=== PATIENT | female | born 1945 | race Caucasian/White ===

== ENCOUNTER 2016-04-06 17:32 | Emergency (ER) | payer OTHER, BC ==
[2016-04-06 17:44] VITALS: TEMP 98.1; BMI 25.7
--- NOTE | 2016-04-06 18:37 | PDOC ---
History of Present Illness - General History Source: Patient Exam Limitations: No Limitations - History of Present Illness Initial Comments: 04/06/16 18:44 The patient is a 70 year old female, with a significant past medical history of paroxysmal afib, HTN, GERD, hypercholesterolemia, CAD x2 stent, brain aneurism, partial colon resection s/p diverticulitis who presents to the emergency department with high blood pressure, with her BP upon ED being 196/115. Patient reports last night having a progressive intermittent diffuse headache after eating a large meal at [facility]. She reports being at the doctor earlier that day and had a normal BP reading. She reports taking two Aleve before going to bed with mild alleviation of her symptoms. She reports later this morning/ afternoon do to the continuing of her symptoms checking her BP 3 times in both arms with reading ranging from 195-209, wiht her last reading being 209/101. The patient denies any ankle swelling, visual change, or numbness and tingling in her extremities. Patient's daily medications include: Losartan 100 mg and daily,toprol xl 50mg which she took later than usual today and amlodipine 5mg "PRN" which she took at 5 pm today. She denies chest pain and shortness of breath. She denies fever, and chills She denies any other complaints at this time, and the remainder of the review of systems is negative. Allergies: Penicillins Social History: Former Smoker. Denies drug use. Social drinker Surgical History: Partial colon resection, cardiac stents. <Zurdo Hudson - Last Filed: 04/06/16 18:51> <Gianna Bonds - Last Filed: 04/08/16 19:44> - General Chief Complaint: Blood Pressure Problem Stated Complaint: htn Time Seen by Provider: 04/06/16 17:55 Past History <Zurdo Hudson - Last Filed: 04/06/16 18:51> - Past Medical History Anemia: No Asthma: No Cancer: No Cardiac Disorders: Yes (2 stents 2010, PAROXYSMAL A-FIB,NOW IN NSR) CVA: No COPD: No CHF: No Dementia: No Diabetes: No GI Disorders: Yes (HX OF SEVERE DIVERTICULITIS) Disorders: No HTN: Yes Hypercholesterolemia: Yes Liver Disease: No Seizures: No Thyroid Disease: No - Surgical History Abdominal Surgery: Yes (PARTIAL COLON RESECTION FROM DIVERTICULITIS 1994) Appendectomy: No Cardiac Surgery: Yes (STENTS; SEE ABOVE) Cholecystectomy: No Lung Surgery: No Neurologic Surgery: No Orthopedic Surgery: No - Psycho/Social/Smoking Cessation Hx Anxiety: No Suicidal Ideation: No Smoking Status: Yes Smoking History: Never smoked Have you smoked in the past 12 months: No Number of Cigarettes Smoked Daily: 0 If you are a former smoker, when did you quit?: 2007 Information on smoking cessation initiated: No Hx Alcohol Use: No Drug/Substance Use Hx: No Substance Use Type: None Hx Substance Use Treatment: No <Gianna Bonds - Last Filed: 04/08/16 19:44> - Past Medical History Allergies/Adverse Reactions: Allergies Allergy/AdvReac Type Severity Reaction Status Date / Time Penicillins Allergy Unknown Verified 05/10/15 07:31 Home Medications: Ambulatory Orders Atorvastatin Ca [Lipitor] 80 mg PO DAILY 02/22/14 Clopidogrel Bisulfate [Plavix -] 75 mg PO DAILY 02/22/14 Ezetimibe [Zetia] 10 mg PO DAILY 02/22/14 Hydrochlorothiazide [Hctz -] 25 mg PO DAILY 02/22/14 Metoprolol Succinate [Toprol XL -] 50 mg PO DAILY 02/22/14 Losartan Potassium 50 mg PO DAILY 05/05/15 Pantoprazole Sodium [Protonix] 40 mg PO DAILY 05/10/15 Potassium Chloride [K-Dur] 20 meq PO DAILY 05/10/15 Ubidecarenone/Vit E Acetate [Co Q-10 100 mg Softgel] 1 each PO DAILY 05/10/15 Amlodipine Besylate [Norvasc -] 5 mg PO PRN PRN 04/06/16 *Physical Exam - Vital Signs Last Vital Signs Temp Pulse Resp BP Pulse Ox 98.1 F 68 18 154/87 98 04/06/16 17:33 04/06/16 18:16 04/06/16 18:16 04/06/16 18:16 04/06/16 18:16 <Zurdo Hudson - Last Filed: 04/06/16 18:51> - Vital Signs Last Vital Signs Temp Pulse Resp BP Pulse Ox 98.1 F 68 18 154/87 98 04/06/16 17:33 04/06/16 18:16 04/06/16 18:16 04/06/16 18:16 04/06/16 18:16 - Physical Exam Comments: 04/06/16 18:35 Physical exam Vital Signs - 24 hr 04/06/16 04/06/16 17:33 18:16 Temperature 98.1 F Pulse Rate 67 Pulse Rate [ 68 Right Radial] Respiratory 18 18 Rate Blood Pressure 196/115 Blood Pressure 154/87 [Left Arm] O2 Sat by Pulse 98 98 Oximetry (%) GENERAL: The patient is awake, alert, and fully oriented, and in no apparent distress. HEAD: Normal with no signs of trauma. EYES: Pupils equal, round and reactive to light, extraocular movements intact, sclera anicteric, conjunctiva are normal. ENT: nares patent, oropharynx clear without exudates. Moist mucous membranes. NECK: Normal range of motion, supple LUNGS: Breath sounds equal, clear to auscultation bilaterally. No wheezes, and no crackles. HEART: Regular rate and rhythm, normal S1 and S2 without murmur, rub or gallop. ABDOMEN: Soft, nontender, normoactive bowel sounds. No guarding, no rebound. No masses appreciated. EXTREMITIES: Normal range of motion, no edema. No clubbing or cyanosis. No cords, erythema, or tenderness. NEURO: Mental status: The patient is oriented x3. Cranial nerves: Cranial nerves II through XII are intact Motor: The upper extremities are 5 over 5 in all muscle groups. The lower extremities are 5 over 5 in all muscle groups. Sensation: Sensation is intact to light touch throughout. Cerebellar: Uzdsie-bztgvt-ljsz is normal in both upper extremities. Heel-knee- min is normal in both lower extremities. Gait: Normal. Heel and toe walking are normal. Tandem gait is normal. NEUROLOGICAL: Cranial nerves II through XII grossly intact. Normal speech, normal gait. PSYCH: Normal mood, normal affect. SKIN: Warm, Dry, normal turgor, no rashes or lesions noted. <Gianna Bonds - Last Filed: 04/08/16 19:44> ED Treatment Course - LABORATORY CBC & Chemistry Diagram: 04/06/16 18:48 04/06/16 18:48 <Gianna Bonds - Last Filed: 04/08/16 19:44> Medical Decision Making - Medical Decision Making 04/06/16 18:57 70-year-old female with a past medical history as noted above, who is usually on losartan 100 mg a day, Toprol-XL 50 mg daily, and amlodipine 5 mg "when necessary", when she feels she needs it Patient started with a headache last night, but did not take her blood pressure, She did have a routine doctor's appointment today, and at that time she did not have a headache and her blood pressure was okay She took her losartan and Toprol-XL late today because of this doctor's appointment She started getting a headache again after returning from her doctor's appointment, and she took her blood pressure and it was high She took an amlodipine at 5 PM Her initial blood pressure on arrival was high, but then came down, probably due to the extra amlodipine that she took It is unclear why she does not take the amlodipine on a daily basis Vital Signs - 24 hr 04/06/16 04/06/16 17:33 18:16 Temperature 98.1 F Pulse Rate 67 Pulse Rate [ 68 Right Radial] Respiratory 18 18 Rate Blood Pressure 196/115 Blood Pressure 154/87 [Left Arm] O2 Sat by Pulse 98 98 Oximetry (%) Patient states that her headache is much better now that her blood pressures come down Will check EKG and lab work, as well as urine EKG Sinus bradycardia 57, left axis deviation -40 Borderline first degree AV block Incomplete right bundle branch block Normal QTC Nonspecific ST-T waves No old EKGs available for comparison at this time 04/06/16 19:16 SIGN OUT Case discussed in detail with oncoming Emergency Physician including history, physical exam and ancillary studies. Oncoming Emergency Physician has assumed care for the patient and will complete the evaluation and treatment. 04/06/16 19:18 <Gianna Bonds - Last Filed: 04/08/16 19:44> *DC/Admit/Observation/Transfer - Attestations Scribe Attestion: 04/06/16 18:44 Documentation prepared by Zurdo Hudson, acting as biomedical manager for Gianna Bonds MD. <Zurdo Hudson - Last Filed: 04/06/16 18:51> <Gianna Bonds - Last Filed: 04/08/16 19:44> Diagnosis at time of Disposition: Essential hypertension - Discharge Dispostion Disposition: HOME Condition at time of disposition: Improved - Patient Instructions Additional Instructions: Take your amlodipine in the evening and her other 2 blood pressure medicines in the morning. Call your rn ostomy tomorrow and let him know that I recommended that you take your amlodipine in the evening on a regular basis. Return to the emergency department immediately with ANY new, persistent or worsening symptoms. Continue any medications as previously prescribed by your physician. You should follow up with your primary doctor as soon as possible regarding today's emergency department visit. . Please make sure your doctor reviews the results of your emergency evaluation. Thank you for coming to the Emergency Department today for your care. It was a pleasure to see you today. Please note that your evaluation is INCOMPLETE until you follow-up with your doctor.
[2016-04-06 18:57] LABS: MCH 31.2 pg (25.7-33.7); MCHC 33.5 g/dl (32.0-36.0); MEAN PLT VOLUME 8.3 fl (7.5-11.1); PLATELET COUNT 198 K/MM3 (134-434); RDW 13.1 % (11.6-15.6); WHITE BLOOD COUNT 4.8 K/mm3 (4.0-10.0)
[2016-04-06 18:58] LABS: URINE APPEARANCE Clear; URINE BILIRUBIN Negative (NEGATIVE); URINE BLOOD Negative (NEGATIVE); URINE GLUCOSE (UA) Negative (NEGATIVE); URINE KETONE Negative (NEGATIVE); URINE NITRITE Negative (NEGATIVE); URINE PROTEIN Negative (NEGATIVE); URINE UROBILINOGEN 0.2 E.U/dl (0.2-1.0)
[2016-04-06 19:04] LABS: URINE COLOR YELLOW; URINE LEUK ESTERASE 1+ (NEGATIVE)
[2016-04-06 19:11] LABS: CPK(DFH) 126 IU/L (26-140)
[2016-04-06 19:13] LABS: URINE RBC 0-2 /hpf (0-3)
[2016-04-06 19:14] LABS: URINE BACTERIA FEW /hpf (NEGATIVE)
[2016-04-06 19:26] LABS: ALBUMIN 4.4 g/dl (3.5-5.0); ALK PHOS 78 U/L (32-92); ANION GAP 12 (8-16); BILIRUBIN,TOTAL 0.7 mg/dl (0.2-1.0); CALCIUM 9.2 mg/dl (8.4-10.2); CO2 26 mmol/L (22-28); CREATININE 0.9 mg/dl (0.6-1.3); GLUCOSE,RANDOM 111 mg/dl (74-106); SGOT/AST 54 U/L (10-42); SGPT/ALT 39 U/L (10-40); TOT PROT 6.7 g/dl (6.4-8.3)
[2016-04-06 19:29] LABS: TROPONIN I (DFP) < 0.03 ng/ml (0.03-0.50)
[2016-04-06 19:34] VITALS: BP 158/88; PULSE 61
--- NOTE | 2016-04-06 19:46 | PDOC ---
*Physical Exam - Vital Signs Last Vital Signs Temp Pulse Resp BP Pulse Ox 98.1 F 61 18 158/88 98 04/06/16 17:33 04/06/16 19:33 04/06/16 18:16 04/06/16 19:33 04/06/16 18:16 ED Treatment Course - LABORATORY CBC & Chemistry Diagram: 04/06/16 18:48 04/06/16 18:48 - ADDITIONAL ORDERS Additional order review: Laboratory Results 04/06/16 04/06/16 04/06/16 18:55 18:48 18:48 Sodium 137 Potassium 3.4 L Chloride 99 Carbon Dioxide 26 Anion Gap 12 BUN 23 H Creatinine 0.9 Creat Clearance w eGFR > 60 Random Glucose 111 H Calcium 9.2 Total Bilirubin 0.7 AST 54 H ALT 39 Alkaline Phosphatase 78 Creatine Kinase 126 Troponin I < 0.03 L Total Protein 6.7 Albumin 4.4 Urine Color Yellow Urine Appearance Clear Urine pH 7.0 Ur Specific [place] 1.010 Urine Protein Negative Urine Glucose (UA) Negative Urine Ketones Negative Urine Blood Negative Urine Nitrite Negative Urine Bilirubin Negative Urine Urobilinogen 0.2 e.u/dl Ur Leukocyte Esterase 1+ H Urine RBC 0-2 Urine WBC 2-5 Ur Epithelial Cells Few Urine Bacteria Few 04/06/16 18:48 RBC 3.87 MCV 93.0 MCHC 33.5 RDW 13.1 MPV 8.3 Progress Note - Progress Note Progress Note: Care of this patient was transferred to hi from Dr. Lisa at 1900 hrs. Patient is a 70-year-old female with multiple cardiac risk factors who comes in complaining of elevated blood pressure. Patient had taken her losartan and shortly before coming in and when she got here her blood pressure was elevated but then improved and is currently normal. Patient was complaining of a headache associated with the elevated blood pressure which has now since resolved. Patient said she is supposed to take her losartan when necessary.. Patient otherwise has a cardiogram with no acute ST-T wave changes however there isn't an old one to compare it with but it appears to be nonacute. Lab work is still pending and patient will be discharged if lab work is unremarkable and I will recommend that she take her losartan every evening instead of by mouth when necessary and follow-up with her primary care doctor. 20:20 Patient feels much better blood pressure is now improved and remains improved. Patient said she will call her legal archivist in the morning I recommended that she take the [place] pain on a regular basis in the evening should also check with her legal archivist to make sure that the legal archivist is on board with that as well. Patient said she is scheduled for a stress test next week to see if possibly there is something else contributing to her blood pressure spikes in the evening. Patient discharged home. *DC/Admit/Observation/Transfer Diagnosis at time of Disposition: Essential hypertension - Discharge Dispostion Disposition: HOME Admit: No - Patient Instructions Additional Instructions: Take your amlodipine in the evening and her other 2 blood pressure medicines in the morning. Call your legal archivist tomorrow and let him know that I recommended that you take your amlodipine in the evening on a regular basis. Return to the emergency department immediately with ANY new, persistent or worsening symptoms. Continue any medications as previously prescribed by your physician. You should follow up with your primary doctor as soon as possible regarding today's emergency department visit. . Please make sure your doctor reviews the results of your emergency evaluation. Thank you for coming to the Emergency Department today for your care. It was a pleasure to see you today. Please note that your evaluation is INCOMPLETE until you follow-up with your doctor.
--- NOTE | 2016-04-07 12:36 | EKG ---
Test Reason : Blood Pressure : / mmHG Vent. Rate : 057 BPM Atrial Rate : 057 BPM P-R Int : 192 ms QRS Dur : 106 ms QT Int : 448 ms P-R-T Axes : 037 -40 -02 degrees QTc Int : 436 ms SINUS BRADYCARDIA LEFT AXIS DEVIATION INCOMPLETE RIGHT BUNDLE BRANCH BLOCK SEPTAL INFARCT , AGE UNDETERMINED NONSPECIFIC ST ABNORMALITY Confirmed by BISI ESPINAL MD ([id number]) on 04/07/2016 12:35:52 PM Referred By: DR RODGERS Confirmed By:BISI ESPINAL MD
== END 2016-04-06 20:30 | disposition home or self-care (01) ==
LOC: FER 17:32
DX: I10 Essential (primary) hypertension (principal); I48.91 Unspecified atrial fibrillation; K21.9 Gastro-esophageal reflux disease without esophagitis; E78.00 Pure hypercholesterolemia, unspecified; I67.1 Cerebral aneurysm, nonruptured; Z95.5 Presence of coronary angioplasty implant and graft; Z87.891 Personal history of nicotine dependence
CPT/HCPCS: 36415; 71010-TC; 80053; 81003; 81015; 82550; 84484; 85027; 93005; 99283-25

== ENCOUNTER 2017-05-20 19:12 | Emergency (ER) | payer OTHER, BC ==
--- NOTE | 2017-05-20 19:23 | PDOC ---
History of Present Illness - General History Source: Patient Exam Limitations: No Limitations - History of Present Illness Initial Comments: 05/20/17 19:57 The patient is a 71 year old female, with a significant past medical history of Afib and hypertension, who presents to the emergency department with, one day of dizziness. As per patient, she has felt dizzy intermittently throughout the day. She describes her dizziness as the room spinning. She reports going to urgent care who referred her to the ED for further testing. She denies any recent loss of consciousness. She denies recent fevers or chills. She denies recent nausea, vomit, diarrhea or constipation. She denies recent dysuria, frequency, urgency or hematuria. She denies recent chest pain or shortness of breath. <Brennan Alonzo - Last Filed: 05/20/17 19:57> <Yadi Thacker - Last Filed: 05/20/17 22:25> - General Chief Complaint: Lightheaded Stated Complaint: LIGHTHEADED Time Seen by Provider: 05/20/17 19:23 Past History <Brennan Alonzo - Last Filed: 05/20/17 19:57> - Past Medical History Anemia: No Asthma: No Cancer: No Cardiac Disorders: Yes (2 stents 2010, PAROXYSMAL A-FIB,NOW IN NSR) CVA: No COPD: No CHF: No Dementia: No Diabetes: No GI Disorders: Yes (HX OF SEVERE DIVERTICULITIS) Disorders: No HTN: Yes Hypercholesterolemia: Yes Liver Disease: No Seizures: No Thyroid Disease: No - Surgical History Abdominal Surgery: Yes (PARTIAL COLON RESECTION FROM DIVERTICULITIS 1994) Appendectomy: No Cardiac Surgery: Yes (STENTS; SEE ABOVE) Cholecystectomy: No Lung Surgery: No Neurologic Surgery: No Orthopedic Surgery: No - Suicide/Smoking/Psychosocial Hx Smoking Status: Yes Smoking History: Never smoked Have you smoked in the past 12 months: No Number of Cigarettes Smoked Daily: 0 If you are a former smoker, when did you quit?: 2007 Hx Alcohol Use: No Drug/Substance Use Hx: No Substance Use Type: None Hx Substance Use Treatment: No <Yadi Thacker - Last Filed: 05/20/17 22:25> - Past Medical History Allergies/Adverse Reactions: Allergies Allergy/AdvReac Type Severity Reaction Status Date / Time Penicillins Allergy Unknown Verified 05/20/17 19:17 alirocumab AdvReac Severe Flu like Verified 05/20/17 19:17 [From Praluent Pen] illness Home Medications: Ambulatory Orders Ezetimibe [Zetia] 10 mg PO HS 02/22/14 Hydrochlorothiazide [Hctz -] 25 mg PO DAILY 02/22/14 Ubidecarenone/Vit E Acet [Co Q-10 100 mg Softgel] 1 each PO DAILY 05/10/15 Apixaban [Eliquis] 5 mg PO BID tablet 09/01/16 Aspirin [Aspirin Ec] 81 mg PO DAILY 09/01/16 Gabapentin 300 mg PO HS capsule 09/01/16 Losartan Potassium 100 mg PO DAILY tablet 09/01/16 Metoprolol Succinate 50 mg PO DAILY 09/01/16 Pantoprazole Sodium 20 mg PO HS 09/01/16 Meclizine HCl [Antivert -] 25 mg PO QID #30 tablet 05/20/17 Review of Systems - Review of Systems Able to Perform ROS?: Yes Comments:: 05/20/17 19:57 GENERAL/CONSTITUTIONAL: No fever or chills. No weakness. HEAD, EYES, EARS, NOSE AND THROAT: No change in vision. No ear pain or discharge. No sore throat. CARDIOVASCULAR: No chest pain or shortness of breath. RESPIRATORY: No cough, wheezing, or hemoptysis. GASTROINTESTINAL: No nausea, vomiting, diarrhea or constipation. GENITOURINARY: No dysuria, frequency, or change in urination. MUSCULOSKELETAL: No joint or muscle swelling or pain. No neck or back pain. SKIN: No rash NEUROLOGIC: +Vertigo. No headache, loss of consciousness, or change in strength/ sensation. ENDOCRINE: No increased thirst. No abnormal weight change. HEMATOLOGIC/LYMPHATIC: No anemia, easy bleeding, or history of blood clots. ALLERGIC/IMMUNOLOGIC: No hives or skin allergy. All Other Systems: Reviewed and Negative <Brennan Alonzo - Last Filed: 05/20/17 19:57> *Physical Exam - Vital Signs Last Vital Signs Temp Pulse Resp BP Pulse Ox 98.1 F 78 16 112/75 98 05/20/17 19:21 05/20/17 19:21 05/20/17 19:21 05/20/17 19:21 05/20/17 19:21 - Physical Exam Comments: 05/20/17 19:57 GENERAL: Awake, alert, and fully oriented, in no acute distress HEAD: No signs of trauma EYES: PERRLA, EOMI, sclera anicteric, conjunctiva clear ENT: +Throat erythematous. Auricles normal inspection, hearing grossly normal, nares patent. Moist mucosa NECK: Normal ROM, supple, no lymphadenopathy, JVD, or masses LUNGS: Breath sounds equal, clear to auscultation bilaterally. No wheezes, and no crackles HEART: Regular rate and rhythm, normal S1 and S2, no murmurs, rubs or gallops ABDOMEN: Soft, nontender, normoactive bowel sounds. No guarding, no rebound. No masses EXTREMITIES: Normal range of motion, no edema. No clubbing or cyanosis. No cords, erythema, or tenderness NEUROLOGICAL: Cranial nerves II through XII grossly intact. Normal speech, normal gait SKIN: Warm, Dry, normal turgor, no rashes or lesions noted. <Brennan Alonzo - Last Filed: 05/20/17 19:57> ED Treatment Course - ADDITIONAL ORDERS Additional order review: 05/20/17 19:25 Group A Strep Rapid Antigen - Final Throat NEGATIVE FOR THE ANTIGEN OF BETA HEMOLYTIC STREP GROUP A <Brennan Alonzo - Last Filed: 05/20/17 19:57> Medical Decision Making - Medical Decision Making 05/20/17 21:15 Pt comes with vertiginous symptoms. She went to urgent care today and she was told to de la o herself to the ER. They told her she has throat erythema and she has a julia;ateral ear infection ( which she does not have here!) Pt has slight throat erythema. 05/20/17 21:17 Pt is strep negative 05/20/17 22:06 Patient Name: WESTON NEVILLE THIS IS A PRELIMINARY REPORT FROM [facility] DATE OF SERVICE: 2017-05-20 19:36:47 IMAGES: 155 EXAM: CT HEAD WITHOUT IV CONTRAST CLINICAL HISTORY: Clinical concern for cerebellar stroke/infarct TECHNIQUE: axial images from the skull base through the vertex. Reconstructions : No COMPARISON: None FINDINGS: There is a graft left aspect at the level of the cisterna magna on the left. There is no intra-or extra-axial fluid collections, midline shift, mass effect or hydrocephalus. The ventricles are midline in position. The brain parenchyma shows global involutional changes which appear to be age appropriate and age related. There are non-specific periventricular and deep white matter parenchymal areas of low attenuation, likely due to chronic micro-angiopathic/ microvascular ischemic disease, mild. Mild sinusitis. Left mastoiditis. Atherosclerotic vascular calcification. IMPRESSION: No acute intracranial abnormality. Age related involutional changes. Micro- angiopathic changes: Mild.Left mastoiditis. Mild sinusitis. THIS DOCUMENT HAS BEEN ELECTRONICALLY SIGNED 05/20/17 22:25 Pt has mastoiditis and she will get labs and a dose of IV abx. <Yadi Thacker - Last Filed: 05/20/17 22:25> *DC/Admit/Observation/Transfer - Attestations Scribe Attestion: 05/20/17 19:59 Documentation prepared by Brennan Alonzo, acting as medical nurse for Yadi Thacker MD. <Brennan Alonzo - Last Filed: 05/20/17 19:57> - Discharge Dispostion Admit: No <Yadi Thacker - Last Filed: 05/20/17 22:25> Diagnosis at time of Disposition: Vertigo - Discharge Dispostion Disposition: HOME Condition at time of disposition: Stable - Prescriptions Prescriptions: Meclizine HCl [Antivert -] 25 mg PO QID #30 tablet - Referrals Referrals: Sotero Tobias MD [Staff Physician] - - Patient Instructions Printed Discharge Instructions: Benign Paroxysmal Positional Vertigo
[2017-05-20 19:25] VITALS: BP 112/75; PULSE 78; TEMP 98.1; BMI 63.6
[2017-05-20] MEDS ORDERED: MECLIZINE HCL 25 MG TABLET (FP) PO ONE (21:23)
[2017-05-20] MEDS ORDERED: MECLIZINE HCL 25 MG TABLET (FP) ONE (21:23)
== END 2017-05-20 21:26 | disposition home or self-care (01) ==
LOC: FER 19:12
DX: R42 Dizziness and giddiness (principal); I48.91 Unspecified atrial fibrillation; I10 Essential (primary) hypertension; Z95.5 Presence of coronary angioplasty implant and graft; E78.00 Pure hypercholesterolemia, unspecified
CPT/HCPCS: 70450-TC; 87070; 87430; 99281-25

== ENCOUNTER 2017-05-20 22:33 | Observation (INO) | payer OTHER, BC ==
[2017-05-20] MEDS ORDERED: AZITHROMYCIN IVPB 500 MG in DEXTROSE 5%-WATER - 250 ML IVPB ONE (22:39)
--- NOTE | 2017-05-20 22:54 | PDOC ---
ED Treatment Course - LABORATORY CBC & Chemistry Diagram: 05/20/17 23:15 05/20/17 23:15 Medical Decision Making - Medical Decision Making 05/20/17 23:44 PLEASE SEE PREVIOUS CHART FOR THE PATIENT>>> SHE WAS "STARVING" AND ASKING TO LEAVE, SO PT WENT TO EAT, AND I LET HER KNOW THAT I WOULD CALL HER FOR ANY HEAD CT ABNORMALITY. CT SHOWS MASTOIDITIS; WHICH MEANS THAT PT'S VERTIGO IS BASICALLY SYMPTOMATIC MASTOIDITIS. PT IS PCN ALLERGIC. SHE WAS ASKED TO RETURN TO THE ER FOR ZITHROMAX IVPB AND ADMISSION TO MEDICINE. PT'S ADMISSION L;ABS REVELAED THAT SHE IS HYPOKALEMIC. PT PLACED ON ORAL POTASSIUM AND GIVEN AN IV DOSE OF MAG SULFATE. HYPOK+ IS LIKELY DUE TO THE DIURETIC THAT SHE IS ON. Patient Name: WESTON NEVILLE THIS IS A PRELIMINARY REPORT FROM [facility] DATE OF SERVICE: 2017-05-20 19:36:47 IMAGES: 155 EXAM: CT HEAD WITHOUT IV CONTRAST CLINICAL HISTORY: Clinical concern for cerebellar stroke/infarct TECHNIQUE: axial images from the skull base through the vertex. Reconstructions : No COMPARISON: None FINDINGS: There is a graft left aspect at the level of the cisterna magna on the left. There is no intra-or extra-axial fluid collections, midline shift, mass effect or hydrocephalus. The ventricles are midline in position. The brain parenchyma shows global involutional changes which appear to be age appropriate and age related. There are non-specific periventricular and deep white matter parenchymal areas of low attenuation, likely due to chronic micro-angiopathic/ microvascular ischemic disease, mild. Mild sinusitis. Left mastoiditis. Atherosclerotic vascular calcification. IMPRESSION: No acute intracranial abnormality. Age related involutional changes. Micro- angiopathic changes: Mild.Left mastoiditis. Mild sinusitis. THIS DOCUMENT HAS BEEN ELECTRONICALLY SIGNED 05/21/17 03:46 PT ADMITTED TO THE HOSPITALIST. *DC/Admit/Observation/Transfer Diagnosis at time of Disposition: Vertigo, Mastoiditis, Hypokalemia - Discharge Dispostion Condition at time of disposition: Guarded Admit: Yes - Referrals - Patient Instructions - Post Discharge Activity
[2017-05-20] MEDS ORDERED: AZITHROMYCIN 500 MG VIAL IVPB ONE (23:18)
[2017-05-20 23:39] LABS: ACTIVATED PTT 38.5 SECONDS (24.0-38.9)
[2017-05-20 23:41] LABS: BASO % 2.9 % (0-2.0); EOS % 1.5 % (0-4.5); HEMATOCRIT 39.5 % (32.4-45.2); HEMOGLOBIN 13.4 GM/dl (10.7-15.3); LYMPH % 25.4 % (8-40); MCH 32.3 pg (25.7-33.7); MEAN CELL VOLUME 95.2 fl (80-96); MEAN PLT VOLUME 8.5 fl (7.5-11.1); MONO % 6.3 % (3.8-10.2); NEUT % 63.9 % (42.8-82.8); PLATELET COUNT 234 K/MM3 (134-434); RBC 4.15 M/mm3 (3.60-5.2); RDW 12.8 % (11.6-15.6); WHITE BLOOD COUNT 4.8 K/mm3 (4.0-10.8)
[2017-05-20 23:42] LABS: ALBUMIN 4.3 g/dl (3.5-5.0); ALK PHOS 73 U/L (32-92); ANION GAP 11 (8-16); BILIRUBIN,TOTAL 0.8 mg/dl (0.2-1.0); BLOOD UREA NITROGEN 26 mg/dl (7-18); CALCIUM 9.5 mg/dl (8.4-10.2); CHLORIDE 101 mmol/L (98-107); CO2 24 mmol/L (22-28); CREATININE 0.9 mg/dl (0.6-1.3); GLUCOSE,RANDOM 154 mg/dl (74-106); SGOT/AST 177 U/L (10-42); SGPT/ALT 132 U/L (10-40); SODIUM 136 mmol/L (136-145); TOT PROT 7.1 g/dl (6.4-8.3)
[2017-05-20 23:43] LABS: INR 1.75 (0.82-1.09); PROTHROMBIN TIME (PATIENT) 19.4 SEC (10.2-13.0)
[2017-05-20 23:45] LABS: POTASSIUM 2.9 mmol/L (3.5-5.1)
[2017-05-20] MEDS ORDERED: POTASSIUM CHLORIDE TABS 20 MEQ TABLET.ER (FP) PO ONE ×2 (23:45→23:49)
[2017-05-20] MEDS ORDERED: MAGNESIUM SULF 50% (8.12 MEQ/2 ML-1 GM VIAL) IVPB ONE (23:45)
[2017-05-20] MEDS ORDERED: MAGNESIUM SULF 50% (8.12 MEQ/2 ML-1 GM VIAL) ONE (23:54)
[2017-05-21] MEDS ORDERED: SODIUM CHLORIDE 1,000 ML IV SCH ×2 (00:15→09:45)
[2017-05-21 02:48] VITALS: BMI 29.5
[2017-05-21] MEDS ORDERED: POTASSIUM CHLORIDE TABS 20 MEQ TABLET.ER (FP) PO ONE (04:00)
[2017-05-21 06:26] LABS: ANION GAP 10 (8-16); BLOOD UREA NITROGEN 29 mg/dL (7-18); CALCIUM 8.5 mg/dL (8.5-10.1); CHLORIDE 104 mmol/L (98-107); CO2 27 mmol/L (21-32); CREATININE 0.8 mg/dL (0.55-1.02); GLUCOSE,RANDOM 108 mg/dL (74-106); MAGNESIUM 2.2 mg/dL (1.8-2.4); POTASSIUM 3.2 mmol/L (3.5-5.1); SODIUM 141 mmol/L (136-145)
--- NOTE | 2017-05-21 07:24 | HP ---
CHIEF COMPLAINT: dizziness PCP: Dr Michaels HISTORY OF PRESENT ILLNESS: Patient is a 71y/o female with a past medical history of afib (paroxysmal), CAD (stent x 2) and hypertension. Patient reports 24 hours of dizziness. She reports as if the room is spinning. Patient denies any syncopal episode. She was evaluated in urgent care yesterday and was referred to the emergency department for further evaluation. ER course was notable for: (1)ct of head, no mass lesion, gross acute infarct, or ich, mild ethomoid sinusitis, minimal fluid in the mastoid air cells left more than right. (2) wbc 4.8 (3) potassium 2.9 Recent Travel: none PAST MEDICAL HISTORY: see hpi PAST SURGICAL HISTORY: see hpi Social History: retired resides at home with Smoking: none Alcohol:none Drugs: none Family History: non contributory to this admission Allergies Penicillins Allergy (Unknown, Verified 05/20/17 22:36) alirocumab [From Praluent Pen] Adverse Reaction (Severe, Verified 05/20/17 22:36 ) Flu like illness HOME MEDICATIONS: Home Medications Medication Instructions Recorded Ezetimibe [Zetia] 10 mg PO HS 02/22/14 Hydrochlorothiazide [Hctz -] 25 mg PO DAILY 02/22/14 Ubidecarenone/Vit E Acet [Co Q-10 1 each PO DAILY 05/10/15 100 mg Softgel] Apixaban [Eliquis] 5 mg PO BID tablet 09/01/16 Aspirin [Aspirin Ec] 81 mg PO DAILY 09/01/16 Gabapentin 300 mg PO HS capsule 09/01/16 Losartan Potassium 100 mg PO DAILY tablet 09/01/16 Metoprolol Succinate 50 mg PO DAILY 09/01/16 Pantoprazole Sodium 20 mg PO HS 09/01/16 Meclizine HCl [Antivert -] 25 mg PO QID #30 tablet 05/20/17 REVIEW OF SYSTEMS CONSTITUTIONAL: Absent: fever, chills, diaphoresis, generalized weakness, malaise, loss of appetite, weight change HEENT: Absent: rhinorrhea, nasal congestion, throat pain, throat swelling, difficulty swallowing, mouth swelling, ear pain, eye pain, visual changes CARDIOVASCULAR: Absent: chest pain, syncope, palpitations, irregular heart rate, lightheadedness , peripheral edema RESPIRATORY: Absent: cough, shortness of breath, dyspnea with exertion, orthopnea, wheezing, stridor, hemoptysis GASTROINTESTINAL: Absent: abdominal pain, abdominal distension, nausea, vomiting, diarrhea, constipation, melena, hematochezia GENITOURINARY: Absent: dysuria, frequency, urgency, hesitancy, hematuria, flank pain, genital pain MUSCULOSKELETAL: Absent: myalgia, arthralgia, joint swelling, back pain, neck pain SKIN: Absent: rash, itching, pallor HEMATOLOGIC/IMMUNOLOGIC: Absent: easy bleeding, easy bruising, lymphadenopathy, frequent infections ENDOCRINE: Absent: unexplained weight gain, unexplained weight loss, heat intolerance, cold intolerance NEUROLOGIC: present: dizziness Absent: headache, focal weakness or paresthesias, unsteady gait, seizure, mental status changes, bladder or bowel incontinence PSYCHIATRIC: Absent: anxiety, depression, suicidal or homicidal ideation, hallucinations. PHYSICAL EXAMINATION Vital Signs - 24 hr 05/20/17 05/21/17 05/21/17 22:39 01:51 02:35 Temperature 98 F 97.8 F Pulse Rate 78 74 Pulse Rate [ 66 Right] Respiratory 16 16 18 Rate Blood Pressure 93/61 93/48 Blood Pressure 96/63 [Right] O2 Sat by Pulse 98 96 97 Oximetry (%) 05/21/17 06:00 Temperature 98.1 F Pulse Rate 74 Pulse Rate [ Right] Respiratory 17 Rate Blood Pressure 98/57 Blood Pressure [Right] O2 Sat by Pulse Oximetry (%) Vital Signs 05/21/17 05/21/17 05/21/17 02:35 06:00 08:43 Temperature 97.8 F 98.1 F Pulse Rate 74 74 Respiratory 18 17 Rate Blood Pressure 93/48 98/57 O2 Sat by Pulse 97 97 Oximetry (%) 05/21/17 05/21/17 05/21/17 09:27 09:30 09:31 Temperature 98.2 F 98.2 F 98.2 F Pulse Rate 62 59 L 74 Respiratory 20 20 20 Rate Blood Pressure 94/58 93/58 81/48 O2 Sat by Pulse lying siting standing Oximetry (%) GENERAL: Awake, alert, and fully oriented, in no acute distress. HEAD: Normal with no signs of trauma. EYES: Pupils equal, round and reactive to light, extraocular movements intact, sclera anicteric, conjunctiva clear. No lid lag. EARS, NOSE, THROAT: Ears normal, nares patent, oropharynx clear without exudates. Moist mucous membranes. NECK: Normal range of motion, supple without lymphadenopathy, JVD, or masses. LUNGS: Breath sounds equal, clear to auscultation bilaterally. No wheezes, and no crackles. No accessory muscle use. HEART: Regular rate and rhythm, normal S1 and S2 without murmur, rub or gallop. ABDOMEN: Soft, nontender, not distended, normoactive bowel sounds, no guarding, no rebound, no masses. No hepatomegaly or splenomegaly. MUSCULOSKELETAL: Normal range of motion at all joints. No bony deformities or tenderness. No CVA tenderness. UPPER EXTREMITIES: 2+ pulses, warm, well-perfused. No cyanosis. No clubbing. No peripheral edema. LOWER EXTREMITIES: 2+ pulses, warm, well-perfused. No calf tenderness. No peripheral edema. NEUROLOGICAL: Cranial nerves II-XII intact. Normal speech. Normal gait. PSYCHIATRIC: Cooperative. Good eye contact. Appropriate mood and affect. SKIN: Warm, dry, normal turgor, no rashes or lesions noted, normal capillary refill. Laboratory Results - last 24 hr 05/20/17 05/20/17 05/20/17 22:35 23:15 23:15 WBC 4.8 RBC 4.15 Hgb 13.4 D Hct 39.5 MCV 95.2 MCH 32.3 MCHC 34.0 RDW 12.8 Plt Count 234 MPV 8.5 Neutrophils % 63.9 Lymphocytes % 25.4 Monocytes % 6.3 Eosinophils % 1.5 Basophils % 2.9 H PT with INR INR PTT (Actin FS) Cancelled Sodium Potassium Chloride Carbon Dioxide Anion Gap BUN Creatinine Creat Clearance w eGFR Random Glucose Lactic Acid 2.5 H* Calcium Magnesium Total Bilirubin AST ALT Alkaline Phosphatase Troponin I Total Protein Albumin 05/20/17 05/20/17 05/21/17 23:15 23:15 02:00 WBC RBC Hgb Hct MCV MCH MCHC RDW Plt Count MPV Neutrophils % Lymphocytes % Monocytes % Eosinophils % Basophils % PT with INR 19.4 H INR 1.75 H PTT (Actin FS) 38.5 Sodium 136 Potassium 2.9 L* Chloride 101 Carbon Dioxide 24 Anion Gap 11 BUN 26 H Creatinine 0.9 Creat Clearance w eGFR > 60 Random Glucose 154 H D Lactic Acid 1.6 Calcium 9.5 Magnesium Total Bilirubin 0.8 AST 177 H D ALT 132 H D Alkaline Phosphatase 73 Troponin I Total Protein 7.1 Albumin 4.3 05/21/17 05/21/17 03:00 03:10 WBC RBC Hgb Hct MCV MCH MCHC RDW Plt Count MPV Neutrophils % Lymphocytes % Monocytes % Eosinophils % Basophils % PT with INR INR PTT (Actin FS) Sodium 141 Potassium 3.2 L Chloride 104 Carbon Dioxide 27 Anion Gap 10 BUN 29 H Creatinine 0.8 Creat Clearance w eGFR Random Glucose 108 H Lactic Acid Calcium 8.5 Magnesium 2.2 Total Bilirubin AST ALT Alkaline Phosphatase Troponin I < 0.02 Total Protein Albumin ASSESSMENT/PLAN: F/E/N - low sodium diet - replete lytes prn ppx - oob - scd dispo: pt requires telemetry observation Problem List - Problem (1) Hypokalemia Assessment/Plan: - potassium 2.9, upon admission, 40meq kci given in ED, pending AM labs - continuos cardiac monitoring Code(s): E87.6 - HYPOKALEMIA (2) Mastoiditis Assessment/Plan: - ct scan reviewed, no leukocytosis noted, patient is afebrile - continue zithromax, unable to give cephlosporins due to significant allergy to pcn (angioedema) as per patient - pt will require outpatient ENT Code(s): H70.90 - UNSPECIFIED MASTOIDITIS, UNSPECIFIED EAR Qualifiers: Laterality: left Qualified Code(s): H70.92 - Unspecified mastoiditis, left ear (3) Vertigo Assessment/Plan: - likely secondary to orthostatic hypotension, patient is noted to be orthostatic on vital signs - continue ivf Code(s): R42 - DIZZINESS AND GIDDINESS (4) Essential hypertension Assessment/Plan: - hold metroprol secondary to labile b/p - vital signs q4h Code(s): I10 - ESSENTIAL (PRIMARY) HYPERTENSION (5) Afib Assessment/Plan: - pt is nsr, strict monitoring continue eliquis Code(s): I48.91 - UNSPECIFIED ATRIAL FIBRILLATION Qualifiers: Atrial fibrillation type: paroxysmal Qualified Code(s): I48.0 - Paroxysmal atrial fibrillation Visit type - Emergency Visit Emergency Visit: Yes ED Registration Date: 05/21/17 Care time: The patient presented to the Emergency Department on the above date and was hospitalized for further evaluation of their emergent condition. - New Patient This patient is new to me today: Yes Date on this admission: 05/21/17 - Critical Care Critical Care patient: No Hospitalist Screening - Colonoscopy Questionnaire Colonoscopy Questionnaire: Colonoscopy Questionnaire - Patient: 50 - 75 years old and never had a screening colonoscopy: No History of colon or rectal polyps, or CA: No History of IBD, Crohn's disease or UC: No History of abdominal radiation therapy as a child: No - Relative: 1 with colon or rectal CA, or polyps at age 60 or younger: Unknown Colon or rectal CA diagnosed at age 45 or younger: Unknown Multiple relatives with colon or rectal CA: Unknown - Outcome: Screening Result: Negative Screen
--- NOTE | 2017-05-21 08:19 | EKG ---
Test Reason : Blood Pressure : / mmHG Vent. Rate : 074 BPM Atrial Rate : 074 BPM P-R Int : 234 ms QRS Dur : 114 ms QT Int : 436 ms P-R-T Axes : 045 -58 022 degrees QTc Int : 483 ms SINUS RHYTHM WITH 1ST DEGREE A-V BLOCK LEFT AXIS DEVIATION INCOMPLETE RIGHT BUNDLE BRANCH BLOCK NONSPECIFIC ST AND T WAVE ABNORMALITY PROLONGED QT ABNORMAL ECG WHEN COMPARED WITH ECG OF 06-APR-2016 19:12, MS INTERVAL HAS INCREASED CRITERIA FOR SEPTAL INFARCT ARE NO LONGER PRESENT Confirmed by LISA ADAMSON MD ([id number]) on 05/21/2017 8:19:16 AM Referred By: MD KAY Confirmed By:LISA ADAMSON MD
[2017-05-21 08:42] LABS: HEMOGLOBIN 11.9 GM/dl (10.7-15.3); MEAN PLT VOLUME 9.2 fl (7.5-11.1)
[2017-05-21 08:52] LABS: ANION GAP 10 (8-16); BLOOD UREA NITROGEN 28 mg/dl (7-18); CALCIUM 9.4 mg/dl (8.4-10.2); CHLORIDE 104 mmol/L (98-107); CO2 24 mmol/L (22-28); GLUCOSE,RANDOM 106 mg/dl (74-106); MAGNESIUM 1.9 mg/dL (1.8-2.4); POTASSIUM 3.9 mmol/L (3.5-5.1); SODIUM 138 mmol/L (136-145)
[2017-05-21 09:30] LABS: CREATININE 0.8 mg/dl (0.6-1.3)
[2017-05-21] MEDS ORDERED: MAGNESIUM SULFATE 2 GM in SODIUM CHLORIDE 100 ML IVPB ONE (09:43)
[2017-05-21] MEDS ORDERED: ASPIRIN COATED 81 MG TABLET.EC PO SCH (10:00)
[2017-05-21] MEDS ORDERED: HYDROCHLOROTHIAZIDE 25 MG TABLET (FP) PO SCH (10:00)
[2017-05-21] MEDS ORDERED: MAGNESIUM SULFATE IN WATER 2 GM/50 ML IVPB IVPB ONE (10:00)
[2017-05-21] MEDS ORDERED: PATIENT'S OWN MEDICATION (NON-FORMULARY) (Ubidecarenone/Vit E Acet [Co Q-10 100 Mg Softgel PO SCH (10:00)
[2017-05-21] MEDS ORDERED: AZITHROMYCIN IVPB 250 MG in DEXTROSE 5%-WATER - 250 ML IVPB SCH (10:00)
[2017-05-21] MEDS ORDERED: APIXABAN 5 MG TABLET PO SCH (10:00)
[2017-05-21] MEDS: MECLIZINE HCL 25 MG TABLET (FP) PO SCH ×2 (10:40→13:11)
[2017-05-21 14:12] VITALS: TEMP 97.9
[2017-05-21 14:14] VITALS: BP 106/61; PULSE 80
--- NOTE | 2017-05-21 14:41 | DS ---
Physical Exam: SUBJECTIVE: Patient seen and examined OBJECTIVE: Vital Signs Period Temp Pulse Resp BP Sys/[place] Pulse Ox Last 24 Hr 97.8 F-98.2 F 59-80 16-20 81-106/44-65 96-98 PHYSICAL EXAM GENERAL: The patient is awake, alert, and fully oriented, in no acute distress. HEAD: Normal with no signs of trauma. EYES: PERRL, extraocular movements intact, sclera anicteric, conjunctiva clear. ENT: Ears normal, nares patent, oropharynx clear without exudates, moist mucous membranes. NECK: Trachea midline, full range of motion, supple. LUNGS: Breath sounds equal, clear to auscultation bilaterally, no wheezes, no crackles, no accessory muscle use. HEART: Regular rate and rhythm, S1, S2 without murmur, rub or gallop. ABDOMEN: Soft, nontender, nondistended, normoactive bowel sounds, no guarding, no rebound, no hepatosplenomegaly, no masses. EXTREMITIES: 2+ pulses, warm, well-perfused, no edema. NEUROLOGICAL: Cranial nerves II through XII grossly intact. Normal speech, gait not observed. PSYCH: Normal mood, normal affect. SKIN: Warm, dry, normal turgor, no rashes or lesions noted. LABS Laboratory Results - last 24 hr 05/20/17 05/20/17 05/20/17 22:35 23:15 23:15 WBC 4.8 RBC 4.15 Hgb 13.4 D Hct 39.5 MCV 95.2 MCH 32.3 MCHC 34.0 RDW 12.8 Plt Count 234 MPV 8.5 Neutrophils % 63.9 Lymphocytes % 25.4 Monocytes % 6.3 Eosinophils % 1.5 Basophils % 2.9 H PT with INR INR PTT (Actin FS) Cancelled Sodium Potassium Chloride Carbon Dioxide Anion Gap BUN Creatinine Creat Clearance w eGFR Random Glucose Lactic Acid 2.5 H* Calcium Magnesium Total Bilirubin AST ALT Alkaline Phosphatase Troponin I Total Protein Albumin 05/20/17 05/20/17 05/21/17 23:15 23:15 02:00 WBC RBC Hgb Hct MCV MCH MCHC RDW Plt Count MPV Neutrophils % Lymphocytes % Monocytes % Eosinophils % Basophils % PT with INR 19.4 H INR 1.75 H PTT (Actin FS) 38.5 Sodium 136 Potassium 2.9 L* Chloride 101 Carbon Dioxide 24 Anion Gap 11 BUN 26 H Creatinine 0.9 Creat Clearance w eGFR > 60 Random Glucose 154 H D Lactic Acid 1.6 Calcium 9.5 Magnesium Total Bilirubin 0.8 AST 177 H D ALT 132 H D Alkaline Phosphatase 73 Troponin I Total Protein 7.1 Albumin 4.3 05/21/17 05/21/17 05/21/17 03:00 03:10 07:30 WBC RBC Hgb Hct MCV MCH MCHC RDW Plt Count MPV Neutrophils % Lymphocytes % Monocytes % Eosinophils % Basophils % PT with INR INR PTT (Actin FS) Sodium 141 138 Potassium 3.2 L 3.9 D Chloride 104 104 Carbon Dioxide 27 24 Anion Gap 10 10 BUN 29 H 28 H Creatinine 0.8 0.8 Creat Clearance w eGFR Random Glucose 108 H 106 D Lactic Acid Calcium 8.5 9.4 Magnesium 2.2 1.9 Total Bilirubin AST ALT Alkaline Phosphatase Troponin I < 0.02 Total Protein Albumin 05/21/17 07:30 WBC RBC Hgb Hct MCV MCH MCHC RDW Plt Count MPV Neutrophils % Lymphocytes % Monocytes % Eosinophils % Basophils % PT with INR INR PTT (Actin FS) Sodium Potassium Chloride Carbon Dioxide Anion Gap BUN Creatinine Creat Clearance w eGFR Random Glucose Lactic Acid Calcium Magnesium Total Bilirubin AST ALT Alkaline Phosphatase Troponin I < 0.03 Total Protein Albumin HOSPITAL COURSE: Date of Admission:05/21/17 Date of Discharge: 05/21/17 Minutes to complete discharge: 45 Discharge Summary Reason For Visit: VERTIGO, MASTOIDITIS/HYPOKALEMIA Current Active Problems Afib (Acute) Hypokalemia (Acute) Mastoiditis (Acute) Vertigo (Acute) Condition: Guarded - Instructions - Home Medications Comprehensive Discharge Medication List: Ambulatory Orders Ezetimibe [Zetia] 10 mg PO HS 02/22/14 Hydrochlorothiazide [Hctz -] 25 mg PO DAILY 02/22/14 Ubidecarenone/Vit E Acet [Co Q-10 100 mg Softgel] 1 each PO DAILY 05/10/15 Apixaban [Eliquis] 5 mg PO BID tablet 09/01/16 Aspirin [Aspirin Ec] 81 mg PO DAILY 09/01/16 Gabapentin 300 mg PO HS capsule 09/01/16 Losartan Potassium 100 mg PO DAILY tablet 09/01/16 Metoprolol Succinate 50 mg PO DAILY 09/01/16 Pantoprazole Sodium 20 mg PO HS 09/01/16 Meclizine HCl [Antivert -] 25 mg PO QID #30 tablet 05/20/17 Problem List - Problems (1) Hypokalemia Code(s): E87.6 - HYPOKALEMIA (2) Mastoiditis Code(s): H70.90 - UNSPECIFIED MASTOIDITIS, UNSPECIFIED EAR Qualifiers: Laterality: left Qualified Code(s): H70.92 - Unspecified mastoiditis, left ear (3) Vertigo Code(s): R42 - DIZZINESS AND GIDDINESS (4) Essential hypertension Code(s): I10 - ESSENTIAL (PRIMARY) HYPERTENSION (5) Afib Code(s): I48.91 - UNSPECIFIED ATRIAL FIBRILLATION Qualifiers: Atrial fibrillation type: paroxysmal Qualified Code(s): I48.0 - Paroxysmal atrial fibrillation
[2017-05-21 18:53] LABS: HEMATOCRIT 34.3 % (32.4-45.2); MCH 33.1 pg (25.7-33.7); MCHC 34.8 g/dl (32.0-36.0); MEAN CELL VOLUME 95.1 fl (80-96); PLATELET COUNT 169 K/MM3 (134-434); RDW 12.6 % (11.6-15.6); WHITE BLOOD COUNT 4.6 K/mm3 (4.0-10.8)
[2017-05-21] MEDS ORDERED: EZETIMIBE 10 MG TABLET (FP) PO SCH (22:00)
[2017-05-21] MEDS ORDERED: PANTOPRAZOLE 20 MG TABLET (FP) PO SCH (22:00)
[2017-05-21] MEDS ORDERED: GABAPENTIN 300 MG CAPSULE (FP) PO SCH (22:00)
[2017-05-21] MEDS ORDERED: AZITHROMYCIN IVPB 500 MG in DEXTROSE 5%-WATER - 250 ML IVPB ONE (23:59)
== END 2017-05-21 15:30 | disposition home or self-care (01) ==
LOC: FER 22:33 → FM/S 05-21 01:23
PROVIDERS: ADMIT Internal Medicine; ATTEND Nurse Practitioner Family
PROC: 3E03329 Introduction of Other Anti-infective into Peripheral Vein, Percutaneous Approach (ICD-10-PCS; principal; 2017-05-21)
PROC: 3E033GC Introduction of Other Therapeutic Substance into Peripheral Vein, Percutaneous Approach (ICD-10-PCS; 2017-05-21)
PROC: 3E0337Z Introduction of Electrolytic and Water Balance Substance into Peripheral Vein, Percutaneous Approach (ICD-10-PCS; 2017-05-21)
DX: H70.92 Unspecified mastoiditis, left ear (principal); E87.6 Hypokalemia; R42 Dizziness and giddiness; I10 Essential (primary) hypertension; I48.91 Unspecified atrial fibrillation
CPT/HCPCS: 36415; 71046-TC-FY; 80048; 80053; 83605; 83735; 84484; 85025; 85027; 85610; 85730; 93005; 96365; 96367; 99284-25; G0378

== ENCOUNTER 2019-04-25 09:17 | Inpatient (IN) | payer OTHER, BC ==
--- NOTE | 2019-04-25 09:32 | PDOC ---
History of Present Illness - General Chief Complaint: Syncope/Near Syncope Stated Complaint: FALL Time Seen by Provider: 04/25/19 09:32 Past History - Past Medical History Allergies/Adverse Reactions: Allergies Allergy/AdvReac Type Severity Reaction Status Date / Time Penicillins Allergy Unknown Verified 04/25/19 09:31 alirocumab AdvReac Severe Flu like Verified 04/25/19 09:31 [From Praluent Pen] illness Home Medications: Ambulatory Orders Ezetimibe [Zetia] 10 mg PO HS 02/22/14 Hydrochlorothiazide [Hctz -] 25 mg PO DAILY 02/22/14 Ubidecarenone/Vit E Acet [Co Q-10 100 mg Softgel] 1 each PO DAILY 05/10/15 Apixaban [Eliquis] 5 mg PO BID tablet 09/01/16 Aspirin [Aspirin EC] 81 mg PO DAILY 09/01/16 Gabapentin 300 mg PO HS capsule 09/01/16 Losartan Potassium 100 mg PO DAILY tablet 09/01/16 Metoprolol Succinate 50 mg PO DAILY 09/01/16 Pantoprazole Sodium 20 mg PO HS 09/01/16 Meclizine HCl [Antivert -] 25 mg PO QID #30 tablet 05/20/17 Azithromycin [Zithromax -] 250 mg PO DAILY #4 tablet 05/21/17 Anemia: No Asthma: No Cancer: No Cardiac Disorders: Yes (2 stents 2010, PAROXYSMAL A-FIB,NOW IN NSR) CVA: No COPD: No CHF: No Dementia: No Diabetes: No GI Disorders: Yes (HX OF SEVERE DIVERTICULITIS) Disorders: No HTN: Yes Hypercholesterolemia: Yes Liver Disease: No Seizures: No Thyroid Disease: No - Surgical History Abdominal Surgery: Yes (PARTIAL COLON RESECTION FROM DIVERTICULITIS 1994) Appendectomy: No Cardiac Surgery: Yes (STENTS; SEE ABOVE) Cholecystectomy: No Lung Surgery: No Neurologic Surgery: No Orthopedic Surgery: No - Psycho Social/Smoking Cessation Hx Smoking Status: Yes Smoking History: Former smoker Have you smoked in the past 12 months: No Number of Cigarettes Smoked Daily: 0 If you are a former smoker, when did you quit?: 2007 Hx Alcohol Use: No Drug/Substance Use Hx: No Substance Use Type: None Hx Substance Use Treatment: No
--- NOTE | 2019-04-25 09:38 | PDOC ---
History of Present Illness - General Chief Complaint: Syncope/Near Syncope Stated Complaint: FALL Time Seen by Provider: 04/25/19 09:32 History Source: Patient Exam Limitations: No Limitations - History of Present Illness Initial Comments: 04/25/19 09:47 73yF w PMHx CAD s/p 2 stents on Eliquis, HTN, HLD presenting w syncope and head injury. 730a got out of bed to turn off ringing alarm clock, fell down w LOC approx 30s, R posterior head injury, woke up with blood on floor. Does not remember how she fell down. Has pain localized to R posterior head wound. Denies vision change, nausea/vomiting, neck pain, chest pain, SOB, urinary/ bowel mvmt changes. Able to ambulate after fall. tPA Exclusion Checklist 0-3hr - Time Elapsed Date last known well: 04/25/19 Time last known well: 12:30 Elaspsed time: Day(s) and 2 Hour(s) and 55 Minutes - Thrombolytic Therapy Candidate Is the patient eligible for Thrombolytic Therapy?: No - Relative Exclusion Criteria 0-3h Rapid improvement: Yes Stroke severity too mild: Yes - Ineligibility reason(s) Reasons No tPA given: See reason(s) noted above NIH Stroke Scale - Last Known Well Date/Time & Onset Date Last Known Well: 04/25/19 Time Last Known Well: 12:30 - Initial Evaluation Level of consciousness: Alert Ask patient the month and their age: Answers both correctly Ask patient to open & close eyes; make fist and let go: Obeys both correctly Best gaze (horizontal eye movement): Normal Visual field testing: No visual field loss Facial paresis (Show teeth/raise eyebrows/close eyes tight): Normal symmetrical movement Motor Function: Left Arm: Normal Motor Function: Right Arm: Normal (extends arm 90 (or 45) degrees for 10 seconds without drift Motor Function: Left Leg: Drift Motor Function: Right Leg: Normal (extends leg 30 degrees for 5 seconds without drift) Limb Ataxia: No ataxia Sensory(Use pinprick test arms,legs,trunk,face/side to side): Normal Best language (Describe picture, name items, read sentences): No Aphasia Dysarthria (read several words): Normal articulation Extinction and Inattention: No abnormality - Total Score NIH Stroke Scale Score: 1 Past History - Past Medical History Allergies/Adverse Reactions: Allergies Allergy/AdvReac Type Severity Reaction Status Date / Time Penicillins Allergy Unknown Verified 04/25/19 09:31 alirocumab AdvReac Severe Flu like Verified 04/25/19 09:31 [From Praluent Pen] illness Home Medications: Ambulatory Orders Ezetimibe [Zetia] 10 mg PO HS 02/22/14 Hydrochlorothiazide [Hctz -] 25 mg PO DAILY 02/22/14 Ubidecarenone/Vit E Acet [Co Q-10 100 mg Softgel] 1 each PO DAILY 05/10/15 Apixaban [Eliquis] 5 mg PO BID tablet 09/01/16 Aspirin [Aspirin EC] 81 mg PO DAILY 09/01/16 Gabapentin 300 mg PO HS capsule 09/01/16 Losartan Potassium 100 mg PO DAILY tablet 09/01/16 Metoprolol Succinate 50 mg PO DAILY 09/01/16 Pantoprazole Sodium 20 mg PO HS 09/01/16 Meclizine HCl [Antivert -] 25 mg PO QID #30 tablet 05/20/17 Azithromycin [Zithromax -] 250 mg PO DAILY #4 tablet 05/21/17 Anemia: No Asthma: No Cancer: No Cardiac Disorders: Yes (2 stents 2010, PAROXYSMAL A-FIB,NOW IN NSR) CVA: No COPD: No CHF: No Dementia: No Diabetes: No GI Disorders: Yes (HX OF SEVERE DIVERTICULITIS) Disorders: No HTN: Yes Hypercholesterolemia: Yes Liver Disease: No Seizures: No Thyroid Disease: No - Surgical History Abdominal Surgery: Yes (PARTIAL COLON RESECTION FROM DIVERTICULITIS 1994) Appendectomy: No Cardiac Surgery: Yes (STENTS; SEE ABOVE) Cholecystectomy: No Lung Surgery: No Neurologic Surgery: No Orthopedic Surgery: No - Psycho Social/Smoking Cessation Hx Smoking Status: Yes Smoking History: Former smoker Have you smoked in the past 12 months: No Number of Cigarettes Smoked Daily: 0 If you are a former smoker, when did you quit?: 2007 Hx Alcohol Use: No Drug/Substance Use Hx: No Substance Use Type: None Hx Substance Use Treatment: No Review of Systems - Review of Systems Constitutional: No: Chills, Fever HEENTM: No: Eye Pain, Recent change in vision, Nose Pain, Throat Pain Respiratory: No: Cough, Shortness of Breath Cardiac (ROS): Yes: Syncope. No: Chest Pain, Palpitations ABD/GI: No: Abdominal Distended, Constipated, Diarrhea, Nausea, Vomiting : No: Burning, Dysuria Musculoskeletal: No: Back Pain, Joint Pain, Neck Pain Integumentary: No: Bruising, Flushing Neurological: Yes: Headache. No: Numbness, Paresthesia, Seizure, Tingling Psychiatric: No: Anxiety, Depression Endocrine: No: Intolerance to Cold, Intolerance to Heat Hematologic/Lymphatic: Yes: Easy Bleeding. No: Anemia *Physical Exam - Vital Signs Last Vital Signs Temp Pulse Resp BP Pulse Ox 98.0 F 78 18 101/69 93 L 04/25/19 09:31 04/25/19 09:31 04/25/19 09:31 04/25/19 09:04/25/19 09:31 - Physical Exam General Appearance: Yes: Nourished, Appropriately Dressed, Mild Distress HEENT: positive: EOMI, MYKEL, Normal Voice, Hearing Grossly Normal, Other (4cm tender subcutaneous R posterior hematoma, 3cm R posterior laceration closed w 7 catia). negative: Scleral Icterus (R), Scleral Icterus (L), Nasal Congestion Neck: positive: Supple. negative: Tender, Rigid Respiratory/Chest: positive: Lungs Clear, Normal Breath Sounds. negative: Chest Tender, Respiratory Distress, Crackles, Rales, Rhonchi, Stridor, Wheezing Cardiovascular: positive: Regular Rhythm, Regular Rate, S1, S2. negative: Edema , Murmur Gastrointestinal/Abdominal: positive: Normal Bowel Sounds, Flat, Soft. negative : Tender, Organomegaly Extremity: positive: Normal Capillary Refill Integumentary: positive: Normal Color Neurologic: positive: renal dialysis technician II-XII NML intact, Fully Oriented, Alert, Normal Mood/ Affect, Normal Response, Respond to painful stimul, Responsive. negative: Motor Strength 5/5 (L hip flexion 4/5 (chronic, >1yr)), Facial Droop, Numbness, Sensory Deficit, Finger to Nose, Confused, Disoriented Procedures - Laceration/Wound Repair Right Posterior Head Wound Length: to 2.5 cm Wound Explored: clean Wound's Depth, Shape: irregular Irrigated w/ Saline: Yes Anesthesia: 2% Lidocaine w/ Epi (1% lido) Amount of Anesthetic (ccs): 2 Wound Debrided: minimal Wound Repaired With: Catia Number of Sutures: 7 ED Treatment Course - LABORATORY CBC & Chemistry Diagram: 04/25/19 10:03 04/25/19 10:03 Medical Decision Making - Medical Decision Making 04/25/19 10:00 Head/c-spine CT - scalp soft tissue swelling R parietal/occiptal region, no acute brain mass/bleed/infarct, no cervical vertebral fracture. Modified calcified plaques at L common carotid bifurcation and small plaques on right EKG a flutter w variable AV block, L axis deviation, HR 68, QTc 467, no ST changes CXR - clear lung hernandez --- 73yF w PMHx CAD s/p 2 stents on Eliquis, HTN, HLD presenting w unwitnessed syncope and R posterior head injury. Neuro intact. Syncope 2/2 cardiogenic vs neurologic. Low concern for PNA (clear CXR) R posterior head laceration closed w 7 catia. Given tylenol, 1L NS 12:35 pt felt lightheaded, vomited, pronounced L mouth droop and slurred speech that resolved after 1 minute concerning for TIA. Repeat neuro exam normal. Repeat head CT no acute bleed/infarct. No tPA given d/t rapid improvement of mild symptoms Admitted to stroke Dr Mendoza for syncope, head injury on anticoagulation, TIA - placed consults for Dr Early neuro and Dr Menendez cards Dr Early neuro - believes pt had 2 TIAs today (crescendo TIA), advised get CT or MR angiogram, vascular studies Discharge - Discharge Information Problems reviewed: Yes Clinical Impression/Diagnosis: TIA (transient ischemic attack) Syncope Qualifiers: Syncope type: unspecified Qualified Code(s): R55 - Syncope and collapse Head injury Qualifiers: Encounter type: initial encounter Qualified Code(s): S09.90XA - Unspecified injury of head, initial encounter Condition: Stable - Follow up/Referral - Patient Discharge Instructions - Post Discharge Activity
[2019-04-25] MEDS ORDERED: ACETAMINOPHEN 1000 MG/100 ML VIAL (NON FORMULARY) IVPB ONE (09:54)
[2019-04-25] MEDS ORDERED: ACETAMINOPHEN INJECTION 100 ML IVPB ONE (10:07)
[2019-04-25 10:35] LABS: BASO % 0.5 % (0-2.0); EOS % 1.1 % (0-4.5); HEMATOCRIT 36.3 % (32.4-45.2); HEMOGLOBIN 11.9 GM/dL (10.7-15.3); LYMPH % 19.6 % (8-40); MCH 29.5 pg (25.7-33.7); MCHC 32.8 g/dl (32.0-36.0); MEAN CELL VOLUME 89.9 fl (80-96); MEAN PLT VOLUME 8.1 fl (7.5-11.1); NEUT % 71.8 % (42.8-82.8); PLATELET COUNT 245 K/MM3 (134-434); RBC 4.04 M/mm3 (3.60-5.2); RDW 19.7 % (11.6-15.6); WHITE BLOOD COUNT 6.9 K/mm3 (4.0-10.0)
[2019-04-25 10:57] LABS: INR 1.38 (0.83-1.09); PROTHROMBIN TIME (PATIENT) 16.3 SEC (9.7-13.0)
[2019-04-25 10:59] LABS: ALBUMIN 3.6 g/dl (3.4-5.0); BILIRUBIN,TOTAL 0.3 mg/dL (0.2-1); BLOOD UREA NITROGEN 20.1 mg/dL (7-18); CALCIUM 9.3 mg/dL (8.5-10.1); CREATININE 1.1 mg/dL (0.55-1.3); POTASSIUM 3.3 mmol/L (3.5-5.1)
[2019-04-25] MEDS ORDERED: LIDOCAINE 1%/EPI 1:100000 (20 ML MULTI DOSE VIAL) ONE ×2 (11:41→14:49)
--- NOTE | 2019-04-25 12:26 | PDOC ---
Attending Attestation - Resident Resident Name: Koffi Bolanos - HPI HPI: 04/25/19 12:12 PT presents to the ED complaining of syncope today. STates that she got up to turn off her alarm and that she then awoke on the ground, bleeding from the head. Patient was able to ambulate after the injury. Denies chest pain, shortness of breath or prodromal symptoms. - Physicial Exam PE: 04/25/19 12:26 Agree with resident exam. Patient is alert and oriented and in no acute distress. Lungs are clear. Heart regular rate and rhythm. Abdomen: soft, non tender, non distended without guarding or rebound. HEENT: + laceration to scalp - Medical Decision Making 04/25/19 12:46 PT presents to the ED complaining of syncope. scalp laceration. EKG is normal sinus rhythm. Will check labs including cardiac enzymes and admit to medicine. Will check CT head and C spine to rule out intracranial or cervical spinal injury.
[2019-04-25] MEDS: LIDOCAINE 2%/EPINEPHRINE 1:100000 (50 ML MD VIAL) INF ONE ×2 (12:47→12:48)
[2019-04-25] MEDS ORDERED: LIDOCAINE 1%/EPI 1:100000 (20 ML MULTI DOSE VIAL) INF ONE (13:25)
[2019-04-25] MEDS: SODIUM CHLORIDE 1,000 ML IV SCH (14:47)
--- NOTE | 2019-04-25 15:00 | EKG ---
Test Reason : Blood Pressure : / mmHG Vent. Rate : 068 BPM Atrial Rate : 340 BPM P-R Int : 000 ms QRS Dur : 098 ms QT Int : 440 ms P-R-T Axes : 000 -61 266 degrees QTc Int : 467 ms POOR DATA QUALITY, INTERPRETATION MAY BE ADVERSELY AFFECTED ATRIAL FLUTTER WITH VARIABLE A-V BLOCK LEFT AXIS DEVIATION INCOMPLETE RIGHT BUNDLE BRANCH BLOCK ANTEROSEPTAL INFARCT , AGE UNDETERMINED NONSPECIFIC ST ABNORMALITY ABNORMAL ECG Confirmed by BISI ESPINLA MD ([id number]) on 04/25/2019 2:59:35 PM Referred By: Confirmed By:BISI ESPINAL MD
[2019-04-25] MEDS ORDERED: MECLIZINE HCL 25 MG TABLET (FP) PO PRN (16:22)
[2019-04-25 17:33] VITALS: BMI 27.7
[2019-04-25] MEDS: ACETAMINOPHEN 500 MG TABLET (FP) PO PRN (19:26)
--- NOTE | 2019-04-25 20:25 | CONSULT ---
Consult - text type - Consultation Consultation Note: NEUROLOGY CONSULTATION is greatly appreciated: Events reviewed and discussed with Dr. Bolanos in the ED. Patient examined. This 73 yo RH, m woman with 5 children is known to me from 06/10 Neuro eval. PMH sig for HTN, HLD, ASHD, s/p stents x 2, AFib. S/P stenting of a Left vertebral artery aneursym at [facility] 7 yrs ago. Maintained on: zetimibe; Hydrochlorothiazide 25; Apixaban 5 BID; Aspirin 81; Gabapentin 300 HS; Losartan 100; Metoprolol 50 ; Pantoprazole; Meclizine Seen by me in evaluation of Migraine headaches +/- Vertigo and chronic Restless legs syndrome. Headaches resolved on metoprolol and nocturnal leg pains resolved on pramipexole and now maintained on Gabapenton HS. For at least a few months the patient has c/o brief dizziness when rapidly arising from bed or chair. This AM she jumped out of bed and "raced around" to turn off alarm ringing on her husbands side. Her next recollection is waking up in a pool of blood and coming to ED for catia. She has a dull, pressing, holocranial headache all day long distinct from her prior migraines, One episode of nausea this AM- resolved. Ambulated to Bathroom without dizziness or unsteadiness. CT of head (reviewed): Left vertebral stent. Otherwise normal ALLY: Stapled laceration right occiput. BP's 97-101-58- all supine. No bruits. Cor irreg. NEURO: MS/speech: Normal CN II-XII: Normal without nystagmus Motor: No drift or tremor. Normal strength, bulk and tone. Normal reflexes. Toes downgoing Coord: no FTN dystaxia Sensory: Normal. Romberg Neg Gaiot: Normal IMP: Normal Neurological exam Syncope due to orthostatic hypotension Head trauma with concussion H/O migraine NUNES's/ RLS- Quiescent SUGGEST: Check orthostatic BP's. Cardiology consultation to prioritize BP/Cardiac meds. I would continue low-doses of a Beta-hannah for migraine prophylaxis and rate control but would taper and D/C Losartan, HCTZ while following BP. D/C Meclizine. Neuro f/u as out patient. Thank you very much, Jonathan Early MD
--- NOTE | 2019-04-25 21:14 | HP ---
Admitting History and Physical - Primary Care Physician PCP: Yakov Mendoza - Admission Chief Complaint: syncope History of Present Illness: Patient is a 73 y/o female with past medical history of CAD s/p stent x 2 on Eliquis, HTN, HLD. Patient presentes to ER today after syncopal episode this morning. She woke up at 7:30 and got out of bed to turn off her alarm and fell down. She admits to LOC and head injury. She does not remember how she fell. History Source: Patient Limitations to Obtaining History: No Limitations - Past Medical History Cardiovascular: Yes: CAD, HTN, Hyperlipdemia - Past Surgical History Past Surgical History: Yes: Stent - Smoking History Smoking history: Former smoker Have you smoked in the past 12 months: No Aproximately how many cigarettes per day: 0 If you are a former smoker, when did you quit?: 2007 - Alcohol/Substance Use Hx Alcohol Use: No - Social History ADL: Independent History of Recent Travel: No Home Medications - Allergies Allergies/Adverse Reactions: Allergies Allergy/AdvReac Type Severity Reaction Status Date / Time Penicillins Allergy Unknown Verified 04/25/19 09:31 alirocumab AdvReac Severe Flu like Verified 04/25/19 09:31 [From Praluent Pen] illness - Home Medications Home Medications: Ambulatory Orders Ezetimibe [Zetia] 10 mg PO HS 02/22/14 Hydrochlorothiazide [Hctz -] 25 mg PO DAILY 02/22/14 Ubidecarenone/Vit E Acet [Co Q-10 100 mg Softgel] 1 each PO DAILY 05/10/15 Apixaban [Eliquis] 5 mg PO BID tablet 09/01/16 Aspirin [Aspirin EC] 81 mg PO DAILY 09/01/16 Gabapentin 300 mg PO HS capsule 09/01/16 Losartan Potassium 100 mg PO DAILY tablet 09/01/16 Metoprolol Succinate 50 mg PO DAILY 09/01/16 Pantoprazole Sodium 20 mg PO HS 09/01/16 Meclizine HCl [Antivert -] 25 mg PO QID #30 tablet 05/20/17 Azithromycin [Zithromax -] 250 mg PO DAILY #4 tablet 05/21/17 Review of Systems - Review of Systems Constitutional: reports: No Symptoms Eyes: reports: No Symptoms HENT: reports: No Symptoms Neck: reports: No Symptoms Cardiovascular: reports: No Symptoms Respiratory: reports: No Symptoms Gastrointestinal: reports: No Symptoms Genitourinary: reports: No Symptoms Breasts: reports: No Symptoms Reported Musculoskeletal: reports: No Symptoms Integumentary: reports: No Symptoms Neurological: reports: Syncope Endocrine: reports: No Symptoms Hematology/Lymphatic: reports: No Symptoms Psychiatric: reports: No Symptoms Physical Examination Vital Signs: Vital Signs Temperature 98.0 F 04/25/19 17:24 Pulse Rate 98 H 04/25/19 17:24 Respiratory Rate 18 04/25/19 17:24 Blood Pressure 97/58 L 04/25/19 17:24 O2 Sat by Pulse Oximetry (%) 93 L 04/25/19 17:24 Constitutional: Yes: No Distress, Calm Eyes: Yes: Conjunctiva Clear HENT: Yes: Other (R Posterior head laceration) Musculoskeletal: Yes: WNL Extremities: Yes: WNL Edema: No Wound/Incision: Yes: [place] Intact Neurological: Yes: Alert, Oriented Psychiatric: Yes: Alert, Oriented Labs: CBC, BMP 04/25/19 10:03 04/25/19 10:03 Imaging - Results Cat Scan: Report Reviewed Problem List - Problems (1) Hyperlipidemia Assessment/Plan: -Zetia Code(s): E78.5 - HYPERLIPIDEMIA, UNSPECIFIED (2) Head injury Assessment/Plan: -Head CT scan shows interval moderate soft tissue swelling of scalp or hematoma over right occipital junction, moderate atrophy without evidence of acute intracranial pathology -repeat Head CT scan shows no evidence of acute ICH, edema, midline shift, mass effect or akull fracture, no evidence of acute territorial infarction, right posterior skull injury with catia -neuro check q4h -pain control Code(s): S09.90XA - UNSPECIFIED INJURY OF HEAD, INITIAL ENCOUNTER Qualifiers: Encounter type: initial encounter Qualified Code(s): S09.90XA - Unspecified injury of head, initial encounter (3) Syncope Assessment/Plan: -Cardiology and Neurology consult -tele monitoring -carotid US -echocardiogram -Head CT scan results reviewed -neuro checks q4h Code(s): R55 - SYNCOPE AND COLLAPSE Qualifiers: Syncope type: unspecified Qualified Code(s): R55 - Syncope and collapse (4) Essential hypertension Assessment/Plan: -low Na diet -monitor BP Code(s): I10 - ESSENTIAL (PRIMARY) HYPERTENSION (5) Afib Assessment/Plan: -Eliquis -Metoprolol for rate control -tele monitoring -cardiology consult Code(s): I48.91 - UNSPECIFIED ATRIAL FIBRILLATION Qualifiers: Atrial fibrillation type: paroxysmal Qualified Code(s): I48.0 - Paroxysmal atrial fibrillation Assessment/Plan see problem list
[2019-04-25] MEDS: GABAPENTIN 300 MG CAPSULE PO SCH (21:29)
[2019-04-25] MEDS: APIXABAN 5 MG TABLET PO SCH (21:29)
[2019-04-25] MEDS: PANTOPRAZOLE 20 MG TABLET PO SCH (21:29)
[2019-04-25] MEDS ORDERED: EZETIMIBE 10 MG TABLET (FP) PO SCH (22:00)
[2019-04-26] MEDS ORDERED: MELATONIN 5 MG TABLETS PO ONE (01:05)
[2019-04-26 08:13] LABS: BASO % 0.6 % (0-2.0); EOS % 1.2 % (0-4.5); HEMOGLOBIN 10.4 GM/dL (10.7-15.3); LYMPH % 36.1 % (8-40); MCH 29.2 pg (25.7-33.7); MCHC 32.4 g/dl (32.0-36.0); MEAN CELL VOLUME 90.4 fl (80-96); MEAN PLT VOLUME 8.5 fl (7.5-11.1); MONO % 12.5 % (3.8-10.2); NEUT % 49.6 % (42.8-82.8); PLATELET COUNT 229 K/MM3 (134-434); RBC 3.54 M/mm3 (3.60-5.2); RDW 20.2 % (11.6-15.6); WHITE BLOOD COUNT 5.8 K/mm3 (4.0-10.0)
[2019-04-26 08:37] LABS: ALBUMIN 3.3 g/dl (3.4-5.0); ALK PHOS 90 U/L (45-117); ANION GAP 9 MMOL/L (8-16); BILIRUBIN,TOTAL 0.6 mg/dL (0.2-1); BLOOD UREA NITROGEN 24.7 mg/dL (7-18); CALCIUM 9.1 mg/dL (8.5-10.1); CHLORIDE 108 mmol/L (98-107); CO2 25 mmol/L (21-32); CREATININE 1.1 mg/dL (0.55-1.3); GLUCOSE,RANDOM 101 mg/dL (74-106); MAGNESIUM 1.7 mg/dL (1.8-2.4); POTASSIUM 3.9 mmol/L (3.5-5.1); SGOT/AST 15 U/L (15-37); SGPT/ALT 18 U/L (13-61); SODIUM 142 mmol/L (136-145); TOT PROT 6.2 g/dl (6.4-8.2)
[2019-04-26] MEDS: ACETAMINOPHEN 500 MG TABLET (FP) PO PRN (09:07)
[2019-04-26] MEDS: APIXABAN 5 MG TABLET PO SCH ×2 (09:17→21:08)
--- NOTE | 2019-04-26 12:17 | CON.CARD ---
Consult Consult Specialty:: Cardiology Referred by:: Kelly Reason for Consultation:: Syncope - History of Present Illness Chief Complaint: Syncope History of Present Illness: The patient is a 74-year-old female, with a history of hypertension, hyperlipidemia, coronary artery disease, status post stenting in 2010 at [facility], atrial fibrillation on Eliquis, now presenting with syncope. The patient stated that she rushed out of bed to shut down the alarm clock and woke up on the ground. She sustained scalp lacerations requiring sutures. In the hospital the patient seems to be orthostatic. She gets lightheaded and unsteady while standing up. The patient reports intermittent dizzy spells, but no syncope, over the past 3 months. She is currently comfortable and symptom-free. - History Source History Provided By: Patient, Significant Other Limitations to Obtaining History: No Limitations - Past Medical History Cardio/Vascular: Yes: CAD, HTN, Hyperlipdemia, Other (Atrial fibrillation) - Past Surgical History Past Surgical History: Yes: Stent - Alcohol/Substance Use Hx Alcohol Use: No - Smoking History Smoking history: Former smoker Have you smoked in the past 12 months: No Aproximately how many cigarettes per day: 0 If you are a former smoker, when did you quit?: 2007 - Social History ADL: Independent History of Recent Travel: No Home Medications - Allergies Allergies/Adverse Reactions: Allergies Allergy/AdvReac Type Severity Reaction Status Date / Time Penicillins Allergy Unknown Verified 04/25/19 09:31 alirocumab AdvReac Severe Flu like Verified 04/25/19 09:31 [From Praluent Pen] illness - Home Medications Home Medications: Ambulatory Orders Ezetimibe [Zetia] 10 mg PO HS 02/22/14 Hydrochlorothiazide [Hctz -] 25 mg PO DAILY 02/22/14 Ubidecarenone/Vit E Acet [Co Q-10 100 mg Softgel] 1 each PO DAILY 05/10/15 Apixaban [Eliquis] 5 mg PO BID tablet 09/01/16 Aspirin [Aspirin EC] 81 mg PO DAILY 09/01/16 Gabapentin 300 mg PO HS capsule 09/01/16 Losartan Potassium 100 mg PO DAILY tablet 09/01/16 Metoprolol Succinate 50 mg PO DAILY 09/01/16 Pantoprazole Sodium 20 mg PO HS 09/01/16 Meclizine HCl [Antivert -] 25 mg PO QID #30 tablet 05/20/17 Azithromycin [Zithromax -] 250 mg PO DAILY #4 tablet 05/21/17 Review of Systems - Review of Systems Constitutional: reports: No Symptoms Eyes: reports: No Symptoms HENT: reports: No Symptoms Neck: reports: No Symptoms Cardiovascular: reports: No Symptoms Respiratory: reports: No Symptoms Gastrointestinal: reports: No Symptoms Genitourinary: reports: No Symptoms Breasts: reports: No Symptoms Reported Musculoskeletal: reports: No Symptoms Integumentary: reports: No Symptoms Neurological: reports: No Symptoms Endocrine: reports: No Symptoms Hematology/Lymphatic: reports: No Symptoms Vital Signs: Vital Signs Temperature 98.0 F 04/26/19 10:00 Pulse Rate 93 H 04/26/19 10:00 Respiratory Rate 18 04/26/19 10:00 Blood Pressure 123/74 04/26/19 10:00 O2 Sat by Pulse Oximetry (%) 93 L 04/26/19 09:00 Constitutional: Yes: Well Nourished, No Distress, Calm Eyes: Yes: WNL, Conjunctiva Clear, EOM Intact HENT: Yes: WNL, Other (Scalp laceration) Neck: Yes: WNL, Supple, Trachea Midline Respiratory: Yes: WNL, Regular, CTA Bilaterally Gastrointestinal: Yes: WNL, Normal Bowel Sounds, Soft Renal/: Yes: WNL Cardiovascular: Yes: Pulse Irregular JVD: No Carotid Bruit: No PMI: Non-Displaced Heart Sounds: Yes: S1, S2 Murmur: Yes: Systolic Murmur, Grade 2 Musculoskeletal: Yes: WNL Extremities: Yes: WNL Edema: No Peripheral Pulses WNL: Yes Integumentary: Yes: WNL Neurological: Yes: WNL, Alert, Oriented ...Motor Strength: WNL Psychiatric: Yes: WNL, Alert, Oriented - Other Data Labs, Other Data: CBC, BMP 04/26/19 07:26 04/26/19 07:26 INR, PTT INR 1.38 (0.83-1.09) H 04/25/19 10:03 Troponin, BNP 04/26/19 07:26 Troponin I < 0.02 Troponin, BNP 04/26/19 07:26 Troponin I < 0.02 Assessment/Plan The patient is a 74-year-old female, with a history of hypertension, hyperlipidemia, coronary artery disease, status post stenting in 2010 at [facility], atrial fibrillation on Eliquis, now presenting with syncope. The patient stated that she rushed out of bed to shut down the alarm clock and woke up on the ground. She sustained scalp lacerations requiring sutures. In the hospital the patient seems to be orthostatic. She gets lightheaded and unsteady while standing up. The patient reports intermittent dizzy spells, but no syncope, over the past 3 months. She is currently comfortableHer ECG showed sinus rhythm, left anterior fascicular block, incomplete right bundle branch block with an old anteroseptal infarct. Please arrange for an echocardiogram. Agree with stopping the losartan. The patient is orthostatic. Encourage p.o. fluid intake. Continue metoprolol and Eliquis as currently. Ventricular rates are well controlled in atrial fibrillation. Continue telemetry for the time being. We will follow.
--- NOTE | 2019-04-26 13:02 | PN ---
Progress Note, Physician Chief Complaint: Syncope Head Laceration History of Present Illness: Previous notes and events reviewed awake and alert NAD complain of pain to laceration site Orthostatic hypotension noted complain of dizziness when standin denies chest pain or SOB - Current Medication List Current Medications: Active Medications Acetaminophen (Tylenol -) 1,000 mg PO Q6H PRN PRN Reason: PAIN LEVEL 4 - 6 Stop: 04/26/19 19:06 Last Admin: 04/26/19 09:07 Dose: 1,000 mg Apixaban (Eliquis -) 5 mg PO BID [facility] Last Admin: 04/26/19 09:17 Dose: 5 mg Ezetimibe (Zetia -) 10 mg PO [facility] Last Admin: 04/25/19 21:29 Dose: Not Given Gabapentin (Neurontin -) 300 mg PO [facility] Last Admin: 04/25/19 21:29 Dose: 300 mg Sodium Chloride (Normal Saline -) 1,000 mls @ 42 mls/hr IV ASDIR [facility] Last Admin: 04/25/19 14:47 Dose: 42 mls/hr Metoprolol Succinate (Toprol Xl -) 50 mg PO DAILY [facility] Last Admin: 04/26/19 09:17 Dose: 50 mg Pantoprazole Sodium (Protonix -) 20 mg PO [facility] Last Admin: 04/25/19 21:29 Dose: Not Given - Objective Vital Signs: Vital Signs Temperature 98.0 F 04/26/19 10:00 Pulse Rate 96 H 04/26/19 12:37 Respiratory Rate 18 04/26/19 10:00 Blood Pressure 132/68 04/26/19 12:37 O2 Sat by Pulse Oximetry (%) 93 L 04/26/19 09:00 Constitutional: Yes: No Distress, Calm Eyes: Yes: Conjunctiva Clear HENT: Yes: Other (laceration R occipital) Cardiovascular: Yes: Regular Rate and Rhythm Respiratory: Yes: Regular, CTA Bilaterally Gastrointestinal: Yes: Normal Bowel Sounds, Soft Musculoskeletal: Yes: WNL Extremities: Yes: WNL Edema: No Wound/Incision: Yes: Catia Intact Neurological: Yes: Alert, Oriented Psychiatric: Yes: Alert, Oriented Labs: CBC, BMP 04/26/19 07:26 04/26/19 07:26 INR, PTT INR 1.38 (0.83-1.09) H 04/25/19 10:03 Problem List - Problems (1) Hyperlipidemia Assessment/Plan: -lipid panel Code(s): E78.5 - HYPERLIPIDEMIA, UNSPECIFIED (2) Head injury Assessment/Plan: -Head CT scan shows interval moderate soft tissue swelling of scalp or hematoma over right occipital junction, moderate atrophy without evidence of acute intracranial pathology -repeat Head CT scan shows no evidence of acute ICH, edema, midline shift, mass effect or akull fracture, no evidence of acute territorial infarction, right posterior skull injury with catia -neuro check q4h -pain control Code(s): S09.90XA - UNSPECIFIED INJURY OF HEAD, INITIAL ENCOUNTER Qualifiers: Encounter type: initial encounter Qualified Code(s): S09.90XA - Unspecified injury of head, initial encounter (3) Syncope Assessment/Plan: -Cardiology and Neurology consult -tele monitoring Head CT scan shows interval moderate soft tissue swelling of scalp or hematoma over right occipital junction, moderate atrophy without evidence of acute intracranial pathology -repeat Head CT scan shows no evidence of acute ICH, edema, midline shift, mass effect or akull fracture, no evidence of acute territorial infarction, right posterior skull injury with catia -neuro checks q4h Code(s): R55 - SYNCOPE AND COLLAPSE Qualifiers: Syncope type: unspecified Qualified Code(s): R55 - Syncope and collapse (4) Essential hypertension Assessment/Plan: -low Na diet -monitor BP -BP meds discontinued -Orthostatic hypotension lying BP 132/68, sitting 122/81, standing 67/51 -cardiology on board Code(s): I10 - ESSENTIAL (PRIMARY) HYPERTENSION (5) Afib Assessment/Plan: -Eliquis -Metoprolol for rate control -tele monitoring -cardiology consult Code(s): I48.91 - UNSPECIFIED ATRIAL FIBRILLATION Qualifiers: Atrial fibrillation type: paroxysmal Qualified Code(s): I48.0 - Paroxysmal atrial fibrillation Assessment/Plan see problem list
[2019-04-26] MEDS: SODIUM CHLORIDE 1,000 ML IV SCH (14:08)
[2019-04-26] MEDS: traMADol HCL 50 MG TABLET PO PRN ×2 (16:41→23:47)
[2019-04-26] MEDS: PANTOPRAZOLE 20 MG TABLET PO SCH (21:08)
[2019-04-26] MEDS: GABAPENTIN 300 MG CAPSULE PO SCH (21:08)
[2019-04-26 23:20] LABS: EPI CELLS 3.3 /HPF (0-5/HPF); HYALINE CASTS 1 /lpf (0-8); PH,URINE 6.5 (5.0-8.0); URINE APPEARANCE CLEAR; URINE BACTERIA 44.7 /hpf (NEGATIVE); URINE BILIRUBIN NEGATIVE (NEGATIVE); URINE COLOR YELLOW; URINE GLUCOSE (UA) NEGATIVE (NEGATIVE); URINE KETONE NEGATIVE (NEGATIVE); URINE LEUK ESTERASE NEGATIVE (NEGATIVE); URINE NITRITE NEGATIVE (NEGATIVE); URINE PROTEIN 1+ (NEGATIVE); URINE RBC 0 /hpf (0-4); URINE UROBILINOGEN 0.2 mg/dL (0.2-1.0); URINE WBC 2 /hpf (0-5)
[2019-04-27] MEDS ORDERED: MELATONIN 5 MG TABLETS PO PRN (02:49)
[2019-04-27 07:41] LABS: HEMATOCRIT 29.9 % (32.4-45.2); HEMOGLOBIN 9.7 GM/dL (10.7-15.3); MCH 29.4 pg (25.7-33.7); MCHC 32.5 g/dl (32.0-36.0); MEAN CELL VOLUME 90.6 fl (80-96); MEAN PLT VOLUME 8.6 fl (7.5-11.1); PLATELET COUNT 217 K/MM3 (134-434); RDW 19.6 % (11.6-15.6); WHITE BLOOD COUNT 5.3 K/mm3 (4.0-10.0)
[2019-04-27 08:27] LABS: ALBUMIN 3.3 g/dl (3.4-5.0); BILIRUBIN,TOTAL 0.2 mg/dL (0.2-1); BLOOD UREA NITROGEN 20.3 mg/dL (7-18); CALCIUM 8.9 mg/dL (8.5-10.1); POTASSIUM 3.6 mmol/L (3.5-5.1); TOT PROT 6.1 g/dl (6.4-8.2)
[2019-04-27] MEDS ORDERED: ACETAMINOPHEN 325 MG TABLET (FP) PO PRN (09:35)
--- NOTE | 2019-04-27 09:47 | DS ---
Physical Examination Vital Signs: Vital Signs Temperature 98 F 04/27/19 06:48 Pulse Rate 100 H 04/27/19 06:48 Respiratory Rate 20 04/27/19 06:48 Blood Pressure 105/80 04/27/19 06:48 O2 Sat by Pulse Oximetry (%) 93 L 04/26/19 19:44 Findings/Remarks: PATIENT WALKED THE HALLWAY ALONE WITH ME NO DISTURBANCE OF GAIT Constitutional: Yes: No Distress HENT: Yes: Other (7 ROHINI RIGHT OCCIPITAL) Cardiovascular: Yes: Pulse Irregular Respiratory: Yes: WNL Gastrointestinal: Yes: WNL Renal/: Yes: WNL Musculoskeletal: Yes: Muscle Weakness Edema: No Peripheral Pulses WNL: Yes Wound/Incision: Yes: [place] Intact Neurological: Yes: WNL ...Motor Strength: WNL Psychiatric: Yes: WNL Labs: CBC, BMP 04/27/19 05:30 04/27/19 05:30 Discharge Summary Problems reviewed: Yes Reason For Visit: TIA SYNCOPE Current Active Problems Head injury (Acute) Hyperlipidemia (Acute) Syncope (Acute) TIA (transient ischemic attack) (Acute) Procedures: Principal: CT HEAD Other Procedures: ROHINI TO HEAD Hospital Course: ADMITTED FOR SYNCOPAL EPISODE WITH HEAD LACERATION REQUIRING 7 ROHINI. PATIENT HAD MEDICATIONS ADJUSTED AND STOPPED LOSARTAN AND HCTZ HERE IN HOSPITAL. PATIENT FEELS GOOD TODAY NO ALRMS OTHER THAN CHRONIC AFIB ON TELEMETRY. PATIENT WALKED THE HALLWAYS WITH ME NO DISTURBANCES. PATIENT HAD AN ENTIRE CARDIAC WORKUP WITH DR SMITH AND DOES NOT NEED ECHO AND CARDIAC WORKUP ANY FURTHER. CT HEAD NO BRAIN ACUTE INJURY Plan of Treatment: SEE DR SMITH IN 2-3 DAYS Goals: SLOW DOWN AND STAND UP AND WAIT 10-15 SECONDS BEFORE WALKING SEE DR MENDOZA IN 1 WEEK FOR STAPLE REMOVAL Condition: Stable - Instructions Diet, Activity, Other Instructions: SEE DR MENDOZA IN 7-10 DAYS FOR STAPLE REMOVAL SEE DR SMITH FOR CARDIAC WORKUP OUTPATIENT LOW SALT DIET REMEMBER TO SLOW DOWN AND WAIT 10-15 SECONDS WHEN GETTING UP FROM A CHAIR TO WALK. STANDUP COUNT THEN WALK!!!! Referrals: Yakov Mendoza MD [Primary Care Provider] - Disposition: HOME - Home Medications Comprehensive Discharge Medication List: Ambulatory Orders Ezetimibe [Zetia] 10 mg PO HS 02/22/14 Hydrochlorothiazide [Hctz -] 25 mg PO DAILY 02/22/14 Ubidecarenone/Vit E Acet [Co Q-10 100 mg Softgel] 1 each PO DAILY 05/10/15 Apixaban [Eliquis] 5 mg PO BID tablet 09/01/16 Aspirin [Aspirin EC] 81 mg PO DAILY 09/01/16 Gabapentin 300 mg PO HS capsule 09/01/16 Losartan Potassium 100 mg PO DAILY tablet 09/01/16 Metoprolol Succinate 50 mg PO DAILY 09/01/16 Pantoprazole Sodium 20 mg PO HS 09/01/16 Meclizine HCl [Antivert -] 25 mg PO QID #30 tablet 05/20/17 Azithromycin [Zithromax -] 250 mg PO DAILY #4 tablet 05/21/17
[2019-04-27] MEDS: APIXABAN 5 MG TABLET PO SCH (10:33)
--- NOTE | 2019-04-27 11:00 | PN ---
Progress Note, Physician Chief Complaint: Syncope History of Present Illness: The patient is a 74-year-old female, with a history of hypertension, hyperlipidemia, coronary artery disease, status post stenting in 2010 at [facility], atrial fibrillation on Eliquis, now presenting with syncope. The patient stated that she rushed out of bed to shut down the alarm clock and woke up on the ground. She sustained scalp lacerations requiring sutures. In the hospital the patient seems to be orthostatic. She gets lightheaded and unsteady while standing up. The patient reports intermittent dizzy spells, but no syncope, over the past 3 months. She is currently comfortableHer ECG showed sinus rhythm, left anterior fascicular block, incomplete right bundle branch block with an old anteroseptal infarct. - Current Medication List Current Medications: Active Medications Acetaminophen (Tylenol -) 650 mg PO Q6H PRN PRN Reason: PAIN Last Admin: 04/27/19 10:32 Dose: 650 mg Apixaban (Eliquis -) 5 mg PO BID [facility] Last Admin: 04/27/19 10:33 Dose: 5 mg Melatonin (Melatonin) 5 mg PO HS PRN PRN Reason: INSOMNIA Last Admin: 04/27/19 02:56 Dose: 5 mg Metoprolol Succinate (Toprol Xl -) 50 mg PO DAILY [facility] Last Admin: 04/27/19 10:33 Dose: 50 mg Pantoprazole Sodium (Protonix -) 20 mg PO HS [facility] Last Admin: 04/26/19 21:08 Dose: 20 mg - Objective Vital Signs: Vital Signs Temperature 98 F 04/27/19 06:48 Pulse Rate 100 H 04/27/19 06:48 Respiratory Rate 20 04/27/19 06:48 Blood Pressure 105/80 04/27/19 06:48 O2 Sat by Pulse Oximetry (%) 93 L 04/26/19 19:44 Constitutional: Yes: Well Nourished, No Distress, Calm Eyes: Yes: WNL, Conjunctiva Clear, EOM Intact HENT: Yes: WNL, Atraumatic, Normocephalic Neck: Yes: WNL, Supple, Trachea Midline Cardiovascular: Yes: Pulse Irregular, S1, S2 Respiratory: Yes: WNL, Regular, CTA Bilaterally Gastrointestinal: Yes: WNL, Normal Bowel Sounds, Soft ...Rectal Exam: Yes: Deferred Genitourinary: Yes: WNL Musculoskeletal: Yes: WNL Extremities: Yes: WNL Edema: No Peripheral Pulses WNL: Yes Integumentary: Yes: WNL Neurological: Yes: WNL, Alert, Oriented ...Motor Strength: WNL Labs: CBC, BMP 04/27/19 05:30 04/27/19 05:30 INR, PTT INR 1.38 (0.83-1.09) H 04/25/19 10:03 Assessment/Plan The patient is a 74-year-old female, with a history of hypertension, hyperlipidemia, coronary artery disease, status post stenting in 2010 at [facility], atrial fibrillation on Eliquis, now presenting with syncope. The patient stated that she rushed out of bed to shut down the alarm clock and woke up on the ground. She sustained scalp lacerations requiring sutures. In the hospital the patient seems to be orthostatic. She gets lightheaded and unsteady while standing up. The patient reports intermittent dizzy spells, but no syncope, over the past 3 months. She is currently comfortableHer ECG showed sinus rhythm, left anterior fascicular block, incomplete right bundle branch block with an old anteroseptal infarct. The patient remains quite stable. Walking steadily. Ready to go home. 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 The echocardiogram was not done. The patient was discharged by the primary care physician.
[2019-04-27 12:21] VITALS: BP 116/73; PULSE 95; TEMP 97.4
== END 2019-04-27 13:21 | disposition home or self-care (01) | DRG 312 ==
LOC: JER 09:17 → JERBED 09:55 → J4W 15:56
PROVIDERS: ADMIT Family Medicine; ATTEND Family Medicine
PROC: 0HQ0XZZ Repair Scalp Skin, External Approach (ICD-10-PCS; principal; 2019-04-25)
DX: I95.1 Orthostatic hypotension (principal); I10 Essential (primary) hypertension; E78.5 Hyperlipidemia, unspecified; I25.10 Atherosclerotic heart disease of native coronary artery without angina pectoris; Z95.5 Presence of coronary angioplasty implant and graft; I48.0 Paroxysmal atrial fibrillation; S01.81XA Laceration without foreign body of other part of head, initial encounter; X58.XXXA Exposure to other specified factors, initial encounter; Y93.9 Activity, unspecified; Y92.89 Other specified places as the place of occurrence of the external cause; Y99.9 Unspecified external cause status
CPT/HCPCS: 36415; 70450-TC; 71045-TC-FY; 72125-TC; 80053; 81003; 82550; 82962; 83735; 84484; 85025; 85027; 85610; 87086; 93005; 93010; 99285-25; J0131; J7030

== ENCOUNTER 2021-09-27 13:05 | Inpatient (IN) | payer OTHER, BC ==
[2021-09-27] MEDS ORDERED: METOCLOPRAMIDE HCL INJECTION 10 MG/2 ML VIAL IVPB ONE (13:41)
[2021-09-27] MEDS ORDERED: ACETAMINOPHEN 1000 MG/100 ML BAG IVPB ONE ×2 (13:41→17:14)
[2021-09-27] MEDS ORDERED: LACTATED RINGERS SOLUTION 1000 ML INFUS.BAG IV ONE (13:41)
[2021-09-27] MEDS ORDERED: METOCLOPRAMIDE HCL INJECTION 10 MG/2 ML VIAL ONE (14:54)
[2021-09-27 15:13] LABS: HEMATOCRIT 47.5 % (32.4-45.2); HEMOGLOBIN 16.1 GM/dL (10.7-15.3); MCH 34.3 pg (25.7-33.7); PLATELET COUNT 197 10^3/uL (134-434); RDW 13.3 % (11.6-15.6); WHITE BLOOD COUNT 14.6 K/mm3 (4.0-10.0)
[2021-09-27 15:20] LABS: INR 1.21 (0.83-1.09); PROTHROMBIN TIME (PATIENT) 13.9 SEC (9.7-13.0)
[2021-09-27 15:53] LABS: ANISOCYTOSIS 0; MACROCYTOSIS 0
[2021-09-27] MEDS ORDERED: ONDANSETRON 4 MG/2 ML VIAL IVPUSH ONE (15:58)
[2021-09-27] MEDS ORDERED: IBUPROFEN 400 MG TABLET (FP) PO ONE ×2 (15:59→16:02)
[2021-09-27] MEDS ORDERED: ONDANSETRON 4 MG/2 ML VIAL ONE (16:02)
[2021-09-27] MEDS ORDERED: ONDANSETRON *ODT* 4 MG TABLET ONE (16:05)
[2021-09-27] MEDS ORDERED: ONDANSETRON *ODT* 4 MG TABLET SL ONE (16:06)
[2021-09-27 16:09] LABS: CALCIUM 10.3 mg/dL (8.5-10.1)
[2021-09-27 16:10] LABS: ALBUMIN 4.3 g/dl (3.4-5.0); BLOOD UREA NITROGEN 45.2 mg/dL (7-18); MAGNESIUM 1.7 mg/dL (1.8-2.4)
[2021-09-27 16:13] LABS: CREATININE 1.5 mg/dL (0.55-1.3); PHOSPHOROUS 3.5 mg/dL (2.5-4.9)
[2021-09-27 16:15] LABS: BILIRUBIN,TOTAL 1.2 mg/dL (0.2-1)
[2021-09-27] MEDS ORDERED: ACETAMINOPHEN INJECTION 100 ML IVPB ONE (17:14)
[2021-09-27] MEDS ORDERED: MAGNESIUM 1GM/D5W - 1 GM/100 ML IVPB IVPB ONE ×2 (18:11→22:44)
[2021-09-27] MEDS ORDERED: SODIUM CHLORIDE 1,000 ML IV STA (20:02)
[2021-09-27 21:39] LABS: EPI CELLS 20 /uL (0-25.1); HYALINE CASTS 1 /uL (0-3.1); URINE APPEARANCE CLOUDY; URINE BACTERIA 4095 /uL (0-1359); URINE BILIRUBIN NEGATIVE (NEGATIVE); URINE COLOR YELLOW; URINE GLUCOSE (UA) NEGATIVE (NEGATIVE); URINE KETONE NEGATIVE (NEGATIVE); URINE LEUK ESTERASE 2+ (NEGATIVE); URINE NITRITE NEGATIVE (NEGATIVE); URINE PROTEIN 1+ (NEGATIVE); URINE UROBILINOGEN 0.2 mg/dL (0.2-1.0); URINE WBC 31 /uL (0-25.8)
[2021-09-27] MEDS: DEXTROSE 5%-NORMAL SALINE 1,000 ML IV SCH (22:54)
[2021-09-27] MEDS ORDERED: APIXABAN 5 MG TABLET ONE (22:55)
[2021-09-27] MEDS: APIXABAN 5 MG TABLET PO SCH (22:57)
[2021-09-27 23:35] LABS: URINE RBC 132.8 /uL (0-23.9)
[2021-09-27 23:41] VITALS: BMI 32.1
[2021-09-28] MEDS ORDERED: SIMETHICONE 80 MG TAB.CHEW (FP) PO PRN (01:26)
[2021-09-28] MEDS: ACETAMINOPHEN 325 MG TABLET (FP) PO PRN ×2 (01:36→14:31)
[2021-09-28 09:13] LABS: BLOOD UREA NITROGEN 40.2 mg/dL (7-18)
[2021-09-28 09:14] LABS: ALBUMIN 3.5 g/dl (3.4-5.0); MAGNESIUM 1.7 mg/dL (1.8-2.4)
[2021-09-28 09:17] LABS: CREATININE 1.5 mg/dL (0.55-1.3); PHOSPHOROUS 3.2 mg/dL (2.5-4.9)
[2021-09-28 09:18] LABS: BILIRUBIN,TOTAL 0.8 mg/dL (0.2-1); TOT PROT 6.8 g/dl (6.4-8.2)
[2021-09-28 09:21] LABS: HEMATOCRIT 43.8 % (32.4-45.2); HEMOGLOBIN 14.9 GM/dL (10.7-15.3); MCH 34.5 pg (25.7-33.7); MEAN CELL VOLUME 101.3 fl (80-96); MEAN PLT VOLUME 9.1 fl (7.5-11.1); PLATELET COUNT 149 10^3/uL (134-434); RBC 4.33 M/mm3 (3.60-5.2); RDW 13.4 % (11.6-15.6); WHITE BLOOD COUNT 7.7 K/mm3 (4.0-10.0)
[2021-09-28 09:22] LABS: CALCIUM 8.6 mg/dL (8.5-10.1)
[2021-09-28] MEDS ORDERED: PANTOPRAZOLE SOD 40 MG SUSPENSION PACKET PO SCH (10:00)
[2021-09-28] MEDS ORDERED: POTASSIUM CHLORIDE TABS 20 MEQ TABLET.ER (FP) PO ONE (10:16)
[2021-09-28] MEDS ORDERED: MAGNESIUM SULF 50% (8.12 MEQ/2 ML-1 GM VIAL) IVPB ONE (10:16)
[2021-09-28] MEDS: APIXABAN 5 MG TABLET PO SCH ×2 (10:19→21:28)
[2021-09-28] MEDS: ASPIRIN COATED 81 MG TABLET.EC PO SCH (10:19)
[2021-09-28] MEDS: DEXTROSE 5%-NORMAL SALINE 1,000 ML IV SCH (11:05)
[2021-09-28] MEDS ORDERED: SODIUM CHLORIDE 0.45%/POT 20 MEQ/1,000 ML INFUS.BAG IV SCH (12:15)
[2021-09-28] MEDS ORDERED: SODIUM CHLORIDE 500 ML IV STA (12:53)
[2021-09-28] MEDS: SODIUM CHLORIDE 0.45%/POT 20 MEQ/1,000 ML INFUS.BAG IV SCH (12:55)
[2021-09-28] MEDS: METOCLOPRAMIDE HCL INJECTION 10 MG/2 ML VIAL IVPB SCH (16:21)
[2021-09-28] MEDS ORDERED: cefTRIAXone SODIUM 1 GM VIAL ONE (21:03)
[2021-09-28] MEDS ORDERED: DEXTROSE 5%-WATER - 50 ML IVPB ONE (21:03)
[2021-09-28] MEDS: CEFTRIAXONE 1 GM in DEXTROSE 5%-WATER - 50 ML IVPB SCH (21:27)
[2021-09-28] MEDS: MELATONIN 5 MG TABLETS PO PRN (21:28)
[2021-09-28 21:58] LABS: HIV INTERPRETATION NEGATIVE (NEGATIVE)
[2021-09-29] MEDS: METOCLOPRAMIDE HCL INJECTION 10 MG/2 ML VIAL IVPB SCH ×3 (01:38→17:47)
[2021-09-29] MEDS: SODIUM CHLORIDE 0.45%/POT 20 MEQ/1,000 ML INFUS.BAG IV SCH ×2 (01:41→14:10)
[2021-09-29] MEDS ORDERED: SODIUM CHLORIDE 1,000 ML IV STA (08:47)
[2021-09-29] MEDS ORDERED: DEXTROSE 5%-WATER - 50 ML IVPB ONE (11:18)
[2021-09-29] MEDS ORDERED: cefTRIAXone SODIUM 1 GM VIAL ONE (11:18)
[2021-09-29] MEDS: ASPIRIN COATED 81 MG TABLET.EC PO SCH (11:21)
[2021-09-29] MEDS: PANTOPRAZOLE 40 MG TABLET PO SCH (11:21)
[2021-09-29] MEDS: SIMETHICONE 80 MG TAB.CHEW (FP) PO SCH ×4 (11:21→21:46)
[2021-09-29] MEDS: APIXABAN 5 MG TABLET PO SCH ×2 (11:21→21:46)
[2021-09-29] MEDS: CEFTRIAXONE 1 GM in DEXTROSE 5%-WATER - 50 ML IVPB SCH (11:22)
[2021-09-29 12:26] LABS: ALBUMIN 3.4 g/dl (3.4-5.0); CALCIUM 8.9 mg/dL (8.5-10.1); MAGNESIUM 2.1 mg/dL (1.8-2.4)
[2021-09-29 12:27] LABS: BLOOD UREA NITROGEN 24.4 mg/dL (7-18)
[2021-09-29 12:30] LABS: CREATININE 1.2 mg/dL (0.55-1.3); PHOSPHOROUS 2.3 mg/dL (2.5-4.9)
[2021-09-29 12:31] LABS: BILIRUBIN,TOTAL 0.6 mg/dL (0.2-1); TOT PROT 6.7 g/dl (6.4-8.2)
[2021-09-29] MEDS ORDERED: POTASSIUM CHLORIDE TABS 20 MEQ TABLET.ER (FP) PO ONE (13:50)
[2021-09-29] MEDS: NAPH,MB-DB/K PH,MBDB POWDER PACKET PO SCH ×2 (14:17→21:46)
[2021-09-29] MEDS ORDERED: POTASSIUM PHOSPHATE 30 MM in SODIUM CHLORIDE 500 ML IVPB ONE (15:00)
[2021-09-29] MEDS: MELATONIN 5 MG TABLETS PO PRN (21:46)
[2021-09-30] MEDS: METOCLOPRAMIDE HCL INJECTION 10 MG/2 ML VIAL IVPB SCH ×3 (01:56→17:16)
[2021-09-30] MEDS: BANATROL PLUS POWDER PACKET PO SCH ×2 (05:55→12:59)
[2021-09-30] MEDS: SODIUM CHLORIDE 0.45%/POT 20 MEQ/1,000 ML INFUS.BAG IV SCH ×2 (05:55→13:01)
[2021-09-30] MEDS ORDERED: DIPHENOXYLATE 2.5/ATROPINE.025 1 COMBO TABLET PO ONE ×2 (09:30→16:00)
[2021-09-30] MEDS ORDERED: cefTRIAXone SODIUM 1 GM VIAL ONE (09:39)
[2021-09-30] MEDS ORDERED: DEXTROSE 5%-WATER - 50 ML IVPB ONE (09:39)
[2021-09-30] MEDS: CEFTRIAXONE 1 GM in DEXTROSE 5%-WATER - 50 ML IVPB SCH (09:50)
[2021-09-30] MEDS: APIXABAN 5 MG TABLET PO SCH (09:51)
[2021-09-30] MEDS: SIMETHICONE 80 MG TAB.CHEW (FP) PO SCH ×3 (09:52→17:15)
[2021-09-30] MEDS: NAPH,MB-DB/K PH,MBDB POWDER PACKET PO SCH (09:52)
[2021-09-30] MEDS: ASPIRIN COATED 81 MG TABLET.EC PO SCH (09:52)
[2021-09-30] MEDS: PANTOPRAZOLE 40 MG TABLET PO SCH (09:53)
[2021-09-30 10:52] LABS: HEMATOCRIT 43.4 % (32.4-45.2); HEMOGLOBIN 14.8 GM/dL (10.7-15.3); MCH 34.3 pg (25.7-33.7); MEAN CELL VOLUME 100.9 fl (80-96); MEAN PLT VOLUME 9.1 fl (7.5-11.1); PLATELET COUNT 137 10^3/uL (134-434); RDW 13.5 % (11.6-15.6); WHITE BLOOD COUNT 5.6 K/mm3 (4.0-10.0)
[2021-09-30 11:09] LABS: CALCIUM 8.8 mg/dL (8.5-10.1)
[2021-09-30 11:10] LABS: ALBUMIN 3.4 g/dl (3.4-5.0); BLOOD UREA NITROGEN 18.6 mg/dL (7-18); MAGNESIUM 1.7 mg/dL (1.8-2.4)
[2021-09-30 11:12] LABS: PHOSPHOROUS 1.6 mg/dL (2.5-4.9)
[2021-09-30 11:13] LABS: CREATININE 1.1 mg/dL (0.55-1.3)
[2021-09-30 11:14] LABS: BILIRUBIN,TOTAL 0.6 mg/dL (0.2-1); TOT PROT 6.9 g/dl (6.4-8.2)
[2021-09-30] MEDS ORDERED: KCL 10 MEQ IVPB 10 MEQ/100 ML INFUS.BAG IVPB SCH (13:30)
[2021-09-30] MEDS ORDERED: POTASSIUM CHLORIDE TABS 20 MEQ TABLET.ER (FP) PO ONE (13:45)
[2021-09-30 15:10] VITALS: BP 107/59; PULSE 86; TEMP 98.4
[2021-09-30] MEDS ORDERED: POTASSIUM CHLORIDE ORAL LIQUID 20 MEQ/15 ML PO ONE (15:10)
[2021-09-30] MEDS ORDERED: MAGNESIUM SULF 50% (8.12 MEQ/2 ML-1 GM VIAL) IVPB ONE (15:10)
[2021-09-30] MEDS ORDERED: MAGNESIUM OXIDE 400 MG TABLET (FP) PO ONE (17:19)
[2021-09-30] MEDS ORDERED: SODIUM CHLORIDE 0.45%/POT 20 MEQ/1,000 ML INFUS.BAG IV SCH (17:45)
== END 2021-09-30 18:07 | disposition home or self-care (01) | DRG 683 ==
LOC: JER 13:05 → JERBED 16:52 → J8W 23:18
PROVIDERS: ADMIT Family Medicine; ATTEND Family Medicine
DX: N17.9 Acute kidney failure, unspecified (principal); N39.0 Urinary tract infection, site not specified; A02.0 Salmonella enteritis; E78.5 Hyperlipidemia, unspecified; I25.10 Atherosclerotic heart disease of native coronary artery without angina pectoris; Z79.01 Long term (current) use of anticoagulants; I48.0 Paroxysmal atrial fibrillation; E83.52 Hypercalcemia; G47.00 Insomnia, unspecified; E86.0 Dehydration; I10 Essential (primary) hypertension; Z88.0 Allergy status to penicillin; E87.6 Hypokalemia; E83.39 Other disorders of phosphorus metabolism
CPT/HCPCS: 0241U-QW; 36415; 74019-TC-FY; 76705-TC; 76775-TC; 80053; 81003; 82962; 83690; 83735; 84100; 84484; 85025; 85027; 85610; 85730; 87040; 87045; 87046; 87077; 87086; 87186; 87209; 87324; 87340; 87389; 87449; 87798; 87902; 93005; 93010; 99285-25; J3480; Q0162

== ENCOUNTER 2021-10-16 18:11 | Inpatient (IN) | payer OTHER, BC ==
[2021-10-16 18:31] VITALS: BMI 30.8
[2021-10-16 19:24] LABS: BASO % 0.4 % (0-2.0); HEMATOCRIT 40.9 % (32.4-45.2); HEMOGLOBIN 13.6 GM/dL (10.7-15.3); LYMPH % 8.3 % (8-40); MCHC 33.3 g/dl (32.0-36.0); MEAN CELL VOLUME 99.1 fl (80-96); MEAN PLT VOLUME 9.6 fl (7.5-11.1); MONO % 8.4 % (3.8-10.2); NEUT % 82.9 % (42.8-82.8); PLATELET COUNT 223 10^3/uL (134-434); RBC 4.13 M/mm3 (3.60-5.2); RDW 13.8 % (11.6-15.6); WHITE BLOOD COUNT 16.3 K/mm3 (4.0-10.0)
[2021-10-16 19:45] LABS: ACTIVATED PTT 37.6 SECONDS (25.2-36.5); INR 1.64 (0.83-1.09); PROTHROMBIN TIME (PATIENT) 18.9 SEC (9.7-13.0)
[2021-10-16 19:48] LABS: ALBUMIN 3.4 g/dl (3.4-5.0); BLOOD UREA NITROGEN 30.1 mg/dL (7-18); CALCIUM 8.9 mg/dL (8.5-10.1); MAGNESIUM 1.3 mg/dL (1.8-2.4)
[2021-10-16 19:51] LABS: CREATININE 1.4 mg/dL (0.55-1.3)
[2021-10-16 19:53] LABS: BILIRUBIN,TOTAL 1.7 mg/dL (0.2-1); TOT PROT 6.9 g/dl (6.4-8.2)
[2021-10-16] MEDS ORDERED: MAGNESIUM SULF 50% (8.12 MEQ/2 ML-1 GM VIAL) IVPB ONE (19:57)
[2021-10-16] MEDS ORDERED: MAGNESIUM SULFATE IN WATER 2 GM/50 ML IVPB IVPB ONE (20:24)
[2021-10-16] MEDS ORDERED: SODIUM CHLORIDE 0.9% 500 ML INFUS.BAG IV ONE (20:27)
[2021-10-16] MEDS ORDERED: DEXTROSE 5%-NORMAL SALINE 1,000 ML IV SCH (23:45)
[2021-10-16] MEDS ORDERED: ACETAMINOPHEN 1000 MG/100 ML BAG IVPB PRN (23:53)
[2021-10-17] MEDS ORDERED: ONDANSETRON 4 MG/2 ML VIAL IVPUSH PRN (02:07)
[2021-10-17] MEDS ORDERED: METOPROLOL TARTRATE 5 MG/5 ML VIAL IVPUSH PRN (02:11)
[2021-10-17] MEDS ORDERED: PANTOPRAZOLE SODIUM 40 MG/100 ML BAG IVPB ONE (03:09)
[2021-10-17] MEDS: PANTOPRAZOLE SODIUM 40 MG VIAL IVPUSH SCH ×2 (03:27→11:12)
[2021-10-17] MEDS ORDERED: HEPARIN NA (PORCINE) 5,000 UNITS/ML 1ML VIAL IVPUSH PRN ×3 (03:33→04:11)
[2021-10-17] MEDS ORDERED: HEPARIN SOD,PORK IN 0.45% NACL 25,000 UNITS/500 ML INFUS.BAG IVPB SCH (03:45)
[2021-10-17] MEDS: HEPARIN INFUSION - 25,000 UNITS/500 ML INFUS.BAG IVPB SCH (04:30)
[2021-10-17] MEDS ORDERED: HEPARIN NA (PORCINE) 5,000 UNITS/ML 1ML VIAL SQ SCH (06:00)
[2021-10-17] MEDS: METOCLOPRAMIDE HCL INJECTION 10 MG/2 ML VIAL IVPB SCH ×2 (11:12→17:35)
[2021-10-17] MEDS: ONDANSETRON 4 MG/2 ML VIAL IVPB SCH ×4 (11:27→23:49)
[2021-10-17 12:49] LABS: BASO % 0.3 % (0-2.0); EOS % 0.6 % (0-4.5); HEMATOCRIT 38.1 % (32.4-45.2); HEMOGLOBIN 12.8 GM/dL (10.7-15.3); LYMPH % 13.2 % (8-40); MCH 33.2 pg (25.7-33.7); MCHC 33.5 g/dl (32.0-36.0); MEAN CELL VOLUME 99.2 fl (80-96); MEAN PLT VOLUME 9.4 fl (7.5-11.1); MONO % 7.1 % (3.8-10.2); NEUT % 78.8 % (42.8-82.8); PLATELET COUNT 218 10^3/uL (134-434); RBC 3.84 M/mm3 (3.60-5.2); RDW 13.8 % (11.6-15.6); WHITE BLOOD COUNT 12.3 K/mm3 (4.0-10.0)
[2021-10-17 13:16] LABS: CALCIUM 8.7 mg/dL (8.5-10.1)
[2021-10-17 13:17] LABS: BLOOD UREA NITROGEN 26.2 mg/dL (7-18); MAGNESIUM 2.2 mg/dL (1.8-2.4)
[2021-10-17 13:20] LABS: PHOSPHOROUS 2.4 mg/dL (2.5-4.9)
[2021-10-17 13:21] LABS: BILIRUBIN,TOTAL 1.2 mg/dL (0.2-1); TOT PROT 6.2 g/dl (6.4-8.2)
[2021-10-17] MEDS ORDERED: CEFEPIME HCL 1 GM VIAL (RESTRICTED TO ID) ONE ×2 (14:11→21:23)
[2021-10-17] MEDS ORDERED: DEXTROSE 5%-WATER 100 ML IVPB ONE ×2 (14:11→21:23)
[2021-10-17] MEDS: CEFEPIME 1 GM in DEXTROSE 5%-WATER 100 ML IVPB SCH ×2 (14:58→22:04)
[2021-10-17] MEDS: KCL 10 MEQ IVPB 10 MEQ/100 ML INFUS.BAG IVPB SCH ×2 (15:40→18:17)
[2021-10-17] MEDS: D5-1/2NS+30 MEQ KCL - 30 MEQ/1,000 ML INFUS.BAG IV SCH (15:43)
[2021-10-18] MEDS ORDERED: ACETAMINOPHEN 325 MG TABLET (FP) PO PRN
[2021-10-18] MEDS: METOCLOPRAMIDE HCL INJECTION 10 MG/2 ML VIAL IVPB SCH (00:31)
[2021-10-18] MEDS: ONDANSETRON 4 MG/2 ML VIAL IVPB SCH ×2 (03:38→08:16)
[2021-10-18] MEDS: D5-1/2NS+30 MEQ KCL - 30 MEQ/1,000 ML INFUS.BAG IV SCH ×2 (04:59→17:02)
[2021-10-18] MEDS: HEPARIN INFUSION - 25,000 UNITS/500 ML INFUS.BAG IVPB SCH (05:32)
[2021-10-18 06:29] LABS: HEMATOCRIT 33.6 % (32.4-45.2); HEMOGLOBIN 11.4 GM/dL (10.7-15.3); MCH 33.5 pg (25.7-33.7); MCHC 33.9 g/dl (32.0-36.0); MEAN CELL VOLUME 99.1 fl (80-96); MEAN PLT VOLUME 9.5 fl (7.5-11.1); PLATELET COUNT 234 10^3/uL (134-434); RBC 3.39 M/mm3 (3.60-5.2); RDW 13.6 % (11.6-15.6); WHITE BLOOD COUNT 8.7 K/mm3 (4.0-10.0)
[2021-10-18 07:08] LABS: ALBUMIN 2.6 g/dl (3.4-5.0)
[2021-10-18 07:13] LABS: BILIRUBIN,TOTAL 0.6 mg/dL (0.2-1); TOT PROT 5.5 g/dl (6.4-8.2)
[2021-10-18] MEDS ORDERED: ONDANSETRON 4 MG/2 ML VIAL IVPUSH PRN (08:08)
[2021-10-18 08:14] LABS: EPI CELLS 18 /uL (0-25.1); HYALINE CASTS 2 /uL (0-3.1); URINE APPEARANCE CLEAR; URINE BACTERIA 109 /uL (0-1359); URINE BILIRUBIN NEGATIVE (NEGATIVE); URINE COLOR YELLOW; URINE GLUCOSE (UA) NEGATIVE (NEGATIVE); URINE KETONE NEGATIVE (NEGATIVE); URINE LEUK ESTERASE 2+ (NEGATIVE); URINE NITRITE NEGATIVE (NEGATIVE); URINE PROTEIN 1+ (NEGATIVE); URINE RBC 10 /uL (0-23.9); URINE UROBILINOGEN 0.2 mg/dL (0.2-1.0); URINE WBC 273 /uL (0-25.8)
[2021-10-18] MEDS ORDERED: KCL 10 MEQ IVPB 10 MEQ/100 ML INFUS.BAG IVPB SCH (08:45)
[2021-10-18] MEDS ORDERED: CEFEPIME HCL 1 GM VIAL (RESTRICTED TO ID) ONE ×2 (09:16→19:46)
[2021-10-18] MEDS ORDERED: DEXTROSE 5%-WATER 100 ML IVPB ONE (09:16)
[2021-10-18] MEDS: PANTOPRAZOLE SODIUM 40 MG VIAL IVPUSH SCH (09:31)
[2021-10-18] MEDS: CEFEPIME 1 GM in DEXTROSE 5%-WATER 100 ML IVPB SCH ×2 (09:33→22:59)
[2021-10-18] MEDS ORDERED: MIDAZOLAM HCL 2 MG/2 ML SINGLE DOSE VIAL ONE (14:25)
[2021-10-18] MEDS: SUCRALFATE 1 GM/10 ML UNIT DOSE CUPS PO SCH ×2 (17:07→21:16)
[2021-10-18] MEDS: ENOXAPARIN NA (PORCINE) 80 MG/0.8 ML DISP.SYRIN SQ SCH (17:30)
[2021-10-18] MEDS ORDERED: ACETAMINOPHEN 1000 MG/100 ML BAG IVPB ONE (20:45)
[2021-10-18] MEDS ORDERED: ACETAMINOPHEN 325 MG TABLET (FP) PO ONE (21:32)
[2021-10-19] MEDS ORDERED: ACETAMINOPHEN 325 MG TABLET (FP) PO ONE (06:00)
[2021-10-19] MEDS: ENOXAPARIN NA (PORCINE) 80 MG/0.8 ML DISP.SYRIN SQ SCH (06:15)
[2021-10-19 07:35] LABS: BASO % 0.5 % (0-2.0); EOS % 1.8 % (0-4.5); HEMATOCRIT 35.7 % (32.4-45.2); LYMPH % 21.3 % (8-40); MCH 33.3 pg (25.7-33.7); MCHC 33.5 g/dl (32.0-36.0); MEAN CELL VOLUME 99.6 fl (80-96); MEAN PLT VOLUME 9.3 fl (7.5-11.1); MONO % 11.3 % (3.8-10.2); NEUT % 65.1 % (42.8-82.8); PLATELET COUNT 246 10^3/uL (134-434); RBC 3.59 M/mm3 (3.60-5.2); RDW 13.8 % (11.6-15.6); WHITE BLOOD COUNT 6.2 K/mm3 (4.0-10.0)
[2021-10-19] MEDS ORDERED: METOCLOPRAMIDE HCL INJECTION 10 MG/2 ML VIAL IVPUSH PRN (07:51)
[2021-10-19 07:55] LABS: CALCIUM 8.5 mg/dL (8.5-10.1)
[2021-10-19 07:56] LABS: ALBUMIN 2.7 g/dl (3.4-5.0)
[2021-10-19 07:59] LABS: BILIRUBIN,TOTAL 0.7 mg/dL (0.2-1); TOT PROT 5.6 g/dl (6.4-8.2)
[2021-10-19 09:02] VITALS: RESP 16
[2021-10-19] MEDS ORDERED: CEFEPIME HCL 1 GM VIAL (RESTRICTED TO ID) ONE (09:15)
[2021-10-19] MEDS ORDERED: DEXTROSE 5%-WATER 100 ML IVPB ONE (09:15)
[2021-10-19] MEDS: SUCRALFATE 1 GM/10 ML UNIT DOSE CUPS PO SCH ×2 (09:26→16:54)
[2021-10-19] MEDS: CEFEPIME 1 GM in DEXTROSE 5%-WATER 100 ML IVPB SCH (09:26)
[2021-10-19] MEDS: PANTOPRAZOLE SODIUM 40 MG VIAL IVPUSH SCH (09:27)
[2021-10-19] MEDS: D5-1/2NS+30 MEQ KCL - 30 MEQ/1,000 ML INFUS.BAG IV SCH (16:55)
[2021-10-19 18:37] VITALS: BP 129/76; PULSE 96; TEMP 98.2
== END 2021-10-19 18:55 | DRG 380 ==
LOC: JER 18:11 → JERBED 23:50 → J4W 10-17 09:51
PROVIDERS: ADMIT Hospitalist; ATTEND Family Medicine
PROC: 0DB68ZX Excision of Stomach, Via Natural or Artificial Opening Endoscopic, Diagnostic (ICD-10-PCS; 2021-10-18)
PROC: 0DB58ZX Excision of Esophagus, Via Natural or Artificial Opening Endoscopic, Diagnostic (ICD-10-PCS; principal; 2021-10-18 14:00)
DX: K22.10 Ulcer of esophagus without bleeding (principal); J69.0 Pneumonitis due to inhalation of food and vomit; E86.0 Dehydration; I25.10 Atherosclerotic heart disease of native coronary artery without angina pectoris; I10 Essential (primary) hypertension; E78.5 Hyperlipidemia, unspecified; K57.90 Diverticulosis of intestine, part unspecified, without perforation or abscess without bleeding; E83.42 Hypomagnesemia; D72.829 Elevated white blood cell count, unspecified; K83.8 Other specified diseases of biliary tract; R11.2 Nausea with vomiting, unspecified; I48.0 Paroxysmal atrial fibrillation; R13.10 Dysphagia, unspecified; Z68.30 Body mass index [BMI] 30.0-30.9, adult; Z95.5 Presence of coronary angioplasty implant and graft; R05.9 Cough, unspecified; R06.02 Shortness of breath
CPT/HCPCS: 36415; 71045-TC-FY; 71250-TC; 74177-TC; 76705-TC; 80053; 81003; 83605; 83690; 83735; 84100; 84484; 85025; 85027; 85610; 85730; 86850; 86900; 86901; 87040; 88305-TC; 93005; 93010; 99285-25; C9803-CS; J1644; Q9967; U0003; U0005

== ENCOUNTER 2022-05-11 09:11 | Inpatient (IN) | payer OTHER, BC ==
[2022-05-11] MEDS ORDERED: ALBUTEROL SO4 2.5/IPRATROPIUM 0.5 INH SOL 3 ML VIAL.NEB. NEB ONE ×2 (09:43→10:11)
[2022-05-11 09:45] VITALS: BMI 30.1
[2022-05-11] MEDS ORDERED: DEXAMETHASONE SOD PHOSPHATE 10 MG/1 ML VIAL IVPUSH ONE (10:42)
[2022-05-11 10:50] LABS: HEMATOCRIT 45.7 % (32.4-45.2); HEMOGLOBIN 15.5 G/dL (10.7-15.3); MCH 34.6 pg (25.7-33.7); MCHC 33.9 g/dl (32.0-36.0); MEAN PLT VOLUME 9.2 fl (7.5-11.1); PLATELET COUNT 255.7 10^3/uL (134-434); RBC 4.48 10^6/uL (3.60-5.2); RDW 13.2 % (11.6-15.6); WHITE BLOOD COUNT 10.8 10^3/uL (4.0-10.8)
[2022-05-11 10:58] LABS: ALBUMIN 3.8 g/dl (3.4-5.0); BILIRUBIN,TOTAL 1.9 mg/dl (0.2-1); CALCIUM 9.1 mg/dl (8.5-10); CREATININE 0.9 mg/dl (0.55-1.3); MAGNESIUM 1.2 mg/dL (1.8-2.4); TOT PROT 6.7 g/dl (6.4-8.2)
[2022-05-11 10:59] LABS: PLATELET ESTIMATE ADEQUATE
[2022-05-11] MEDS ORDERED: MAGNESIUM SULF 50% (8.12 MEQ/2 ML-1 GM VIAL) IVPB ONE (11:07)
[2022-05-11] MEDS ORDERED: POTASSIUM CHLORIDE TABS 20 MEQ TABLET.ER (FP) PO ONE ×2 (11:08→12:00)
[2022-05-11] MEDS ORDERED: MAGNESIUM SULFATE IN WATER 2 GM/50 ML IVPB IVPB ONE (11:11)
[2022-05-11] MEDS ORDERED: ACETAMINOPHEN 325 MG TABLET (FP) PO PRN (15:05)
[2022-05-11] MEDS: methylPREDNISolone NA SUCC 40 MG/1 ML VIAL IVPUSH SCH ×2 (15:43→20:46)
[2022-05-11] MEDS: POTASSIUM CHLORIDE TABS 20 MEQ TABLET.ER (FP) PO SCH (15:43)
[2022-05-11] MEDS: ALBUTEROL SO4 2.5/IPRATROPIUM 0.5 INH SOL 3 ML VIAL.NEB. NEB SCH ×2 (15:44→20:46)
[2022-05-11] MEDS: INSULIN (NOVOLOG) ASPART 100 UNITS/ML 10ML VIAL SQ SCH ×2 (17:30→21:05)
[2022-05-11] MEDS: APIXABAN 5 MG TABLET PO SCH (21:00)
[2022-05-11] MEDS: GABAPENTIN 300 MG CAPSULE PO SCH (21:00)
[2022-05-11] MEDS: FAMOTIDINE 20 MG TABLET PO SCH (21:00)
[2022-05-11] MEDS: guaiFENesin 200 MG/10 ML 10 ML UNIT-DOSE CUPS PO PRN (22:19)
[2022-05-12] MEDS: MELATONIN 5 MG TABLETS PO PRN ×2 (00:40→22:36)
[2022-05-12] MEDS: methylPREDNISolone NA SUCC 40 MG/1 ML VIAL IVPUSH SCH ×3 (03:08→17:02)
[2022-05-12] MEDS: INSULIN (NOVOLOG) ASPART 100 UNITS/ML 10ML VIAL SQ SCH ×4 (06:26→22:36)
[2022-05-12 09:12] LABS: ALBUMIN 3.6 g/dl (3.4-5.0); BILIRUBIN,TOTAL 0.9 mg/dl (0.2-1); CALCIUM 9.4 mg/dl (8.5-10); CREATININE 0.9 mg/dl (0.55-1.3); MAGNESIUM 1.6 mg/dL (1.8-2.4); TOT PROT 6.5 g/dl (6.4-8.2)
[2022-05-12] MEDS: ALBUTEROL SO4 2.5/IPRATROPIUM 0.5 INH SOL 3 ML VIAL.NEB. NEB SCH ×4 (09:18→20:07)
[2022-05-12] MEDS: APIXABAN 5 MG TABLET PO SCH ×2 (09:19→21:20)
[2022-05-12] MEDS: FUROSEMIDE 40 MG TABLET (FP) PO SCH (09:19)
[2022-05-12] MEDS: FAMOTIDINE 20 MG TABLET PO SCH ×2 (09:19→21:20)
[2022-05-12] MEDS: POTASSIUM CHLORIDE TABS 20 MEQ TABLET.ER (FP) PO SCH (09:20)
[2022-05-12 09:33] LABS: BASO % 0.2 % (0-2.0); HEMATOCRIT 42.9 % (32.4-45.2); HEMOGLOBIN 14.7 GM/dL (10.7-15.3); LYMPH % 7.1 % (8-40); MCH 34.7 pg (25.7-33.7); MCHC 34.1 g/dl (32.0-36.0); MEAN CELL VOLUME 101.7 fl (80-96); MEAN PLT VOLUME 9.6 fl (7.5-11.1); MONO % 2.5 % (3.8-10.2); NEUT % 90.2 % (42.8-82.8); PLATELET COUNT 235 10^3/uL (134-434); RBC 4.22 M/mm3 (3.60-5.2); RDW 13.2 % (11.6-15.6); WHITE BLOOD COUNT 9.8 K/mm3 (4.0-10.0)
[2022-05-12] MEDS ORDERED: PANTOPRAZOLE 40 MG TABLET PO SCH (10:00)
[2022-05-12 10:09] LABS: ANISOCYTOSIS 2+; MACROCYTOSIS 1+
[2022-05-12] MEDS: MAGNESIUM OXIDE 400 MG TABLET (FP) PO SCH (11:33)
[2022-05-12] MEDS ORDERED: ALBUTEROL SO4 0.083% IH SOL 2.5 MG/3 ML VIAL.NEB. NEB PRN (16:13)
[2022-05-12] MEDS: FLUTICASONE/UMECLIDIN/VILANTER(200-62.5-25 TRELEGY ELLIPTA) INAHLER IH SCH (18:12)
[2022-05-12] MEDS: guaiFENesin 200 MG/10 ML 10 ML UNIT-DOSE CUPS PO PRN (20:48)
[2022-05-12] MEDS: GABAPENTIN 300 MG CAPSULE PO SCH (21:20)
[2022-05-13] MEDS: methylPREDNISolone NA SUCC 40 MG/1 ML VIAL IVPUSH SCH ×3 (02:30→19:02)
[2022-05-13] MEDS: INSULIN (NOVOLOG) ASPART 100 UNITS/ML 10ML VIAL SQ SCH ×4 (07:30→21:04)
[2022-05-13] MEDS: ALBUTEROL SO4 2.5/IPRATROPIUM 0.5 INH SOL 3 ML VIAL.NEB. NEB SCH ×4 (08:34→21:04)
[2022-05-13] MEDS: CEFTRIAXONE 2 GM in DEXTROSE 5%-WATER 100 ML IVPB SCH (09:38)
[2022-05-13] MEDS: APIXABAN 5 MG TABLET PO SCH ×2 (09:39→21:04)
[2022-05-13] MEDS: POTASSIUM CHLORIDE TABS 20 MEQ TABLET.ER (FP) PO SCH (09:39)
[2022-05-13] MEDS: FAMOTIDINE 20 MG TABLET PO SCH ×2 (09:39→21:05)
[2022-05-13] MEDS: FLUTICASONE/UMECLIDIN/VILANTER(200-62.5-25 TRELEGY ELLIPTA) INAHLER IH SCH (09:39)
[2022-05-13] MEDS: FUROSEMIDE 40 MG TABLET (FP) PO SCH (09:39)
[2022-05-13 10:11] LABS: CALCIUM 9.9 mg/dl (8.5-10); CREATININE 1.2 mg/dl (0.55-1.3); MAGNESIUM 1.4 mg/dL (1.8-2.4)
[2022-05-13] MEDS: MAGNESIUM OXIDE 400 MG TABLET (FP) PO SCH (12:53)
[2022-05-13] MEDS ORDERED: MAGNESIUM SULF 50% (8.12 MEQ/2 ML-1 GM VIAL) IVPB ONE (12:54)
[2022-05-13] MEDS ORDERED: POTASSIUM CHLORIDE TABS 20 MEQ TABLET.ER (FP) PO ONE (12:54)
[2022-05-13] MEDS: PATIENT'S OWN MEDICATION (NON-FORMULARY) (Linaclotide [Linzess] 72 MCG Capsule) PO SCH (13:40)
[2022-05-13] MEDS: GABAPENTIN 300 MG CAPSULE PO SCH (21:04)
[2022-05-13] MEDS: guaiFENesin 200 MG/10 ML 10 ML UNIT-DOSE CUPS PO PRN (21:05)
[2022-05-14] MEDS: methylPREDNISolone NA SUCC 40 MG/1 ML VIAL IVPUSH SCH ×3 (02:00→17:03)
[2022-05-14] MEDS: INSULIN (NOVOLOG) ASPART 100 UNITS/ML 10ML VIAL SQ SCH ×4 (06:26→21:25)
[2022-05-14 08:57] LABS: HEMATOCRIT 42.5 % (32.4-45.2); HEMOGLOBIN 14.6 G/dL (10.7-15.3); MCH 35.3 pg (25.7-33.7); MCHC 34.3 g/dl (32.0-36.0); MEAN PLT VOLUME 9.1 fl (7.5-11.1); PLATELET COUNT 310.8 10^3/uL (134-434); RBC 4.13 10^6/uL (3.60-5.2); RDW 13.5 % (11.6-15.6)
[2022-05-14] MEDS: CEFTRIAXONE 2 GM in DEXTROSE 5%-WATER 100 ML IVPB SCH (09:53)
[2022-05-14] MEDS: FUROSEMIDE 40 MG TABLET (FP) PO SCH (09:53)
[2022-05-14] MEDS: APIXABAN 5 MG TABLET PO SCH ×2 (09:53→21:25)
[2022-05-14] MEDS: FAMOTIDINE 20 MG TABLET PO SCH ×2 (09:53→21:25)
[2022-05-14] MEDS: ALBUTEROL SO4 2.5/IPRATROPIUM 0.5 INH SOL 3 ML VIAL.NEB. NEB SCH ×4 (09:54→21:24)
[2022-05-14] MEDS: POTASSIUM CHLORIDE TABS 20 MEQ TABLET.ER (FP) PO SCH (09:55)
[2022-05-14] MEDS: FLUTICASONE/UMECLIDIN/VILANTER(200-62.5-25 TRELEGY ELLIPTA) INAHLER IH SCH (10:01)
[2022-05-14 10:03] LABS: CALCIUM 9.3 mg/dl (8.5-10); CREATININE 1.1 mg/dl (0.55-1.3); MAGNESIUM 1.9 mg/dL (1.8-2.4); PHOSPHOROUS 3.3 mg/dl (2.5-4.9)
[2022-05-14] MEDS: MAGNESIUM OXIDE 400 MG TABLET (FP) PO SCH (11:53)
[2022-05-14] MEDS: MELATONIN 5 MG TABLETS PO PRN (21:25)
[2022-05-14] MEDS: GABAPENTIN 300 MG CAPSULE PO SCH (21:25)
[2022-05-15] MEDS: methylPREDNISolone NA SUCC 40 MG/1 ML VIAL IVPUSH SCH ×3 (03:24→17:27)
[2022-05-15] MEDS: INSULIN (LEVEMIR) 100 UNITS/ML UNITS SQ SCH (06:28)
[2022-05-15] MEDS: INSULIN (NOVOLOG) ASPART 100 UNITS/ML 10ML VIAL SQ SCH ×4 (06:29→22:34)
[2022-05-15] MEDS: FUROSEMIDE 40 MG TABLET (FP) PO SCH (09:00)
[2022-05-15] MEDS: FAMOTIDINE 20 MG TABLET PO SCH ×2 (09:00→21:40)
[2022-05-15] MEDS: ALBUTEROL SO4 2.5/IPRATROPIUM 0.5 INH SOL 3 ML VIAL.NEB. NEB SCH ×4 (09:00→21:40)
[2022-05-15] MEDS: POTASSIUM CHLORIDE TABS 20 MEQ TABLET.ER (FP) PO SCH (09:01)
[2022-05-15] MEDS: CEFTRIAXONE 2 GM in DEXTROSE 5%-WATER 100 ML IVPB SCH (09:01)
[2022-05-15] MEDS: APIXABAN 5 MG TABLET PO SCH ×2 (09:02→21:40)
[2022-05-15] MEDS: FLUTICASONE/UMECLIDIN/VILANTER(200-62.5-25 TRELEGY ELLIPTA) INAHLER IH SCH (09:06)
[2022-05-15 09:28] LABS: CALCIUM 9.4 mg/dl (8.5-10); CREATININE 1.2 mg/dl (0.55-1.3); MAGNESIUM 1.6 mg/dL (1.8-2.4)
[2022-05-15] MEDS: MAGNESIUM OXIDE 400 MG TABLET (FP) PO SCH (11:10)
[2022-05-15] MEDS ORDERED: MAGNESIUM OXIDE 400 MG TABLET (FP) PO ONE (13:22)
[2022-05-15] MEDS ORDERED: metoPROLOL SUCCINATE 25 MG TAB.SR.24H (FP) PO ONE (13:25)
[2022-05-15] MEDS: GABAPENTIN 300 MG CAPSULE PO SCH (21:40)
[2022-05-16] MEDS: methylPREDNISolone NA SUCC 40 MG/1 ML VIAL IVPUSH SCH ×3 (02:00→21:12)
[2022-05-16] MEDS: INSULIN (NOVOLOG) ASPART 100 UNITS/ML 10ML VIAL SQ SCH ×4 (06:34→21:23)
[2022-05-16] MEDS: INSULIN (LEVEMIR) 100 UNITS/ML UNITS SQ SCH (06:35)
[2022-05-16] MEDS: ALBUTEROL SO4 2.5/IPRATROPIUM 0.5 INH SOL 3 ML VIAL.NEB. NEB SCH ×2 (09:40→11:48)
[2022-05-16] MEDS: FAMOTIDINE 20 MG TABLET PO SCH ×2 (09:41→21:12)
[2022-05-16] MEDS: POTASSIUM CHLORIDE TABS 20 MEQ TABLET.ER (FP) PO SCH (09:41)
[2022-05-16] MEDS: APIXABAN 5 MG TABLET PO SCH ×2 (09:41→21:12)
[2022-05-16] MEDS: FUROSEMIDE 40 MG TABLET (FP) PO SCH (09:41)
[2022-05-16] MEDS: CEFTRIAXONE 2 GM in DEXTROSE 5%-WATER 100 ML IVPB SCH (09:41)
[2022-05-16] MEDS: FLUTICASONE/UMECLIDIN/VILANTER(200-62.5-25 TRELEGY ELLIPTA) INAHLER IH SCH (09:42)
[2022-05-16] MEDS: MAGNESIUM OXIDE 400 MG TABLET (FP) PO SCH (11:47)
[2022-05-16] MEDS: PATIENT'S OWN MEDICATION (NON-FORMULARY) (Linaclotide [Linzess] 72 MCG Capsule) PO SCH (14:55)
[2022-05-16] MEDS: GABAPENTIN 300 MG CAPSULE PO SCH (21:12)
[2022-05-17] MEDS: INSULIN (LEVEMIR) 100 UNITS/ML UNITS SQ SCH (06:08)
[2022-05-17] MEDS: INSULIN (NOVOLOG) ASPART 100 UNITS/ML 10ML VIAL SQ SCH (06:10)
[2022-05-17] MEDS: FLUTICASONE/UMECLIDIN/VILANTER(200-62.5-25 TRELEGY ELLIPTA) INAHLER IH SCH (09:24)
[2022-05-17] MEDS: APIXABAN 5 MG TABLET PO SCH (09:25)
[2022-05-17] MEDS: POTASSIUM CHLORIDE TABS 20 MEQ TABLET.ER (FP) PO SCH (09:25)
[2022-05-17] MEDS: CEFTRIAXONE 2 GM in DEXTROSE 5%-WATER 100 ML IVPB SCH (09:26)
[2022-05-17] MEDS: FAMOTIDINE 20 MG TABLET PO SCH (09:26)
[2022-05-17] MEDS: FUROSEMIDE 40 MG TABLET (FP) PO SCH (09:26)
[2022-05-17] MEDS: methylPREDNISolone NA SUCC 40 MG/1 ML VIAL IVPUSH SCH (09:27)
[2022-05-17 14:57] VITALS: BP 123/83; PULSE 72; RESP 18; TEMP 97.4
== END 2022-05-17 12:41 | disposition home or self-care (01) | DRG 202 ==
LOC: FER 09:11 → FM/S 11:30
PROVIDERS: ADMIT Family Medicine; ATTEND Family Medicine
DX: J20.9 Acute bronchitis, unspecified (principal); I50.33 Acute on chronic diastolic (congestive) heart failure; J44.1 Chronic obstructive pulmonary disease with (acute) exacerbation; J45.909 Unspecified asthma, uncomplicated; I48.91 Unspecified atrial fibrillation; I10 Essential (primary) hypertension; E78.5 Hyperlipidemia, unspecified; E87.6 Hypokalemia; E83.42 Hypomagnesemia; R09.02 Hypoxemia; I25.119 Atherosclerotic heart disease of native coronary artery with unspecified angina pectoris; Z95.5 Presence of coronary angioplasty implant and graft
CPT/HCPCS: 0241U-QW; 36415; 71045-TC-FY; 71046-TC-FY; 71250-TC; 80048; 80053; 82962; 83735; 83880; 84100; 84439; 84443; 84484; 85025; 85027; 87899; 93005; 94640; 99285-25; J1100

== ENCOUNTER 2022-09-05 08:00 | Emergency (ER) | payer OTHER, BC ==
[2022-09-05 08:10] VITALS: TEMP 98; BMI 29.4
[2022-09-05] MEDS ORDERED: HYDROmorphone HCl 2 MG/ML VIAL IVPB ONE ×2 (08:19→12:00)
[2022-09-05] MEDS ORDERED: ACETAMINOPHEN 1000 MG/100 ML BAG IVPB ONE (08:21)
[2022-09-05] MEDS ORDERED: ACETAMINOPHEN INJECTION 100 ML IVPB ONE (08:28)
[2022-09-05] MEDS ORDERED: HYDROmorphone HCL/PF 1 MG/ML VIAL ONE ×2 (08:28→12:00)
[2022-09-05 09:23] LABS: ALBUMIN 4.1 g/dl (3.4-5.0); BILIRUBIN,TOTAL 1.3 mg/dl (0.2-1); CALCIUM 9.8 mg/dl (8.5-10); CREATININE 1.1 mg/dl (0.55-1.3); HEMATOCRIT 41.4 % (32.4-45.2); MCH 34.4 pg (25.7-33.7); MCHC 33.9 g/dl (32.0-36.0); MEAN CELL VOLUME 101.5 fl (80-96); MEAN PLT VOLUME 9.8 fl (7.5-11.1); PLATELET COUNT 218.3 10^3/uL (134-434); RBC 4.08 10^6/uL (3.60-5.2); RDW 13.1 % (11.6-15.6); TOT PROT 6.8 g/dl (6.4-8.2); WHITE BLOOD COUNT 9.2 10^3/uL (4.0-10.8)
[2022-09-05 13:21] VITALS: BP 153/96; PULSE 82; RESP 18
== END 2022-09-05 14:40 | disposition short-term general hospital (02) ==
LOC: FER 08:00
PROC: 3E033NZ Introduction of Analgesics, Hypnotics, Sedatives into Peripheral Vein, Percutaneous Approach (ICD-10-PCS; principal; 2022-09-05)
PROC: 3E033GC Introduction of Other Therapeutic Substance into Peripheral Vein, Percutaneous Approach (ICD-10-PCS; 2022-09-05)
PROC: 3E033NZ Introduction of Analgesics, Hypnotics, Sedatives into Peripheral Vein, Percutaneous Approach (ICD-10-PCS; 2022-09-05)
DX: S22.42XA Multiple fractures of ribs, left side, initial encounter for closed fracture (principal); W01.0XXA Fall on same level from slipping, tripping and stumbling without subsequent striking against object, initial encounter
CPT/HCPCS: 36415; 71260-TC; 74177-TC; 80053; 85027; 99285-25; Q9967

== ENCOUNTER 2022-10-10 10:03 | Emergency (ER) | payer OTHER, BC ==
[2022-10-10 10:12] VITALS: BP 152/91; PULSE 51; RESP 18; TEMP 97.9; BMI 27.4
[2022-10-10] MEDS ORDERED: ONDANSETRON 4 MG/2 ML VIAL IVPUSH ONE (10:21)
[2022-10-10] MEDS ORDERED: ACETAMINOPHEN 1000 MG/100 ML BAG IVPB ONE (10:21)
[2022-10-10] MEDS ORDERED: FAMOTIDINE 20 MG/50 ML IVPB 20 MG/50 ML MG IVPB ONE ×2 (10:21→10:36)
[2022-10-10] MEDS ORDERED: SODIUM CHLORIDE 0.9% 1000 ML INFUS.BAG IV ONE (10:21)
[2022-10-10] MEDS ORDERED: ACETAMINOPHEN INJECTION 100 ML IVPB ONE (10:36)
[2022-10-10] MEDS ORDERED: ONDANSETRON 4 MG/2 ML VIAL ONE (10:36)
[2022-10-10 11:35] LABS: HEMATOCRIT 45.5 % (32.4-45.2); HEMOGLOBIN 15.1 G/dL (10.7-15.3); MCH 33.6 pg (25.7-33.7); MCHC 33.2 g/dl (32.0-36.0); MEAN CELL VOLUME 101.3 fl (80-96); MEAN PLT VOLUME 9.2 fl (7.5-11.1); PLATELET COUNT 196.4 10^3/uL (134-434); RBC 4.49 10^6/uL (3.60-5.2); RDW 13.4 % (11.6-15.6); WHITE BLOOD COUNT 9.5 10^3/uL (4.0-10.8)
[2022-10-10 12:05] LABS: ALBUMIN 4.1 g/dl (3.4-5.0); BILIRUBIN,TOTAL 1.4 mg/dl (0.2-1); BLOOD UREA NITROGEN 23.1 mg/dl (7-18); CREATININE 1.1 mg/dl (0.6-1.3); SGOT/AST 36.1 U/L (15-37); SGPT/ALT 35.5 U/L (7-52); TOT PROT 6.1 g/dl (6.4-8.2)
[2022-10-10] MEDS ORDERED: POTASSIUM CHLORIDE TABS 20 MEQ TABLET.ER (FP) PO ONE ×2 (13:05→13:09)
[2022-10-10] MEDS ORDERED: MAGNESIUM SULF 50% (8.12 MEQ/2 ML-1 GM VIAL) IVPB ONE (13:05)
[2022-10-10] MEDS ORDERED: MAGNESIUM 1GM/D5W - 1 GM/100 ML IVPB IVPB ONE (13:09)
[2022-10-10] MEDS ORDERED: KCL 10 MEQ IVPB 20 MEQ/200 ML INFUS.BAG IVPB ONE (13:09)
[2022-10-10] MEDS: KCL 10 MEQ IVPB 10 MEQ/100 ML INFUS.BAG IVPB SCH ×2 (13:49→14:58)
== END 2022-10-10 15:10 | disposition home or self-care (01) ==
LOC: FER 10:03
PROC: 3E033GC Introduction of Other Therapeutic Substance into Peripheral Vein, Percutaneous Approach (ICD-10-PCS; principal; 2022-10-10)
PROC: 3E033GC Introduction of Other Therapeutic Substance into Peripheral Vein, Percutaneous Approach (ICD-10-PCS; 2022-10-10)
PROC: 3E033GC Introduction of Other Therapeutic Substance into Peripheral Vein, Percutaneous Approach (ICD-10-PCS; 2022-10-10)
PROC: 3E033GC Introduction of Other Therapeutic Substance into Peripheral Vein, Percutaneous Approach (ICD-10-PCS; 2022-10-10)
DX: R11.2 Nausea with vomiting, unspecified (principal)
CPT/HCPCS: 0241U-QW; 36415; 80053; 83735; 84484; 85027; 93005; 99284-25

== ENCOUNTER 2023-02-22 14:30 | Emergency (ER) | payer OTHER, BC ==
[2023-02-22 14:42] VITALS: BP 126/74; PULSE 80; RESP 16; TEMP 98; BMI 27.4
== END 2023-02-22 17:13 | disposition home or self-care (01) ==
LOC: FER 14:30
DX: S06.0X0A Concussion without loss of consciousness, initial encounter (principal); W06.XXXA Fall from bed, initial encounter
CPT/HCPCS: 70450-TC; 72125-TC; 99284-25

== ENCOUNTER 2023-08-29 03:52 | Day surgery (SDC) | payer OTHER, BC ==
[2023-08-28 10:46] VITALS: BMI 26.5
[2023-08-29 06:29] VITALS: RESP 20
[2023-08-29] MEDS ORDERED: BUPIVACAINE HCL/PF 0.5% (5MG/ML) 10 ML VIAL ONE (07:40)
[2023-08-29] MEDS ORDERED: BACITRACIN ZINC 15 GM TUBE TOPICAL OINTMENT ONE (07:40)
[2023-08-29] MEDS ORDERED: LIDOCAINE HCL 1%, 10 MG/ML (20ML VIAL) ONE (07:40)
[2023-08-29] MEDS: LIDOCAINE HCL 1%, 10 MG/ML (20ML VIAL) INF ONE (08:34)
[2023-08-29] MEDS: BUPIVACAINE HCL/PF 0.5% (5MG/ML) 10 ML VIAL IJ ONE (08:34)
[2023-08-29] MEDS ORDERED: ACETAMINOPHEN 325 MG TABLET (FP) PO PRN (08:52)
[2023-08-29 10:49] VITALS: BP 138/73; PULSE 61; TEMP 97.5
== END 2023-08-29 10:50 | disposition home or self-care (01) ==
LOC: JASU-SURG 03:52
PROVIDERS: ATTEND Surgery
PROC: 0JBQ0ZZ Excision of Right Foot Subcutaneous Tissue and Fascia, Open Approach (ICD-10-PCS; principal; 2023-08-29 08:00)
DX: T81.89XA Other complications of procedures, not elsewhere classified, initial encounter (principal); L97.518 Non-pressure chronic ulcer of other part of right foot with other specified severity
CPT/HCPCS: 88304-TC

== ENCOUNTER 2024-01-25 10:22 | Emergency (ER) | payer OTHER, BC ==
[2024-01-25 10:33] VITALS: BP 110/72; PULSE 81; RESP 20; TEMP 99.5; BMI 26.5
[2024-01-25 11:18] LABS: EPITHELIAL CELLS 0-5 /hpf
[2024-01-25] MEDS ORDERED: cefTRIAXone SODIUM 1 GM VIAL ONE ×2 (11:26→11:39)
[2024-01-25] MEDS ORDERED: LIDOCAINE HCL 1%, 10 MG/ML (20ML VIAL) ONE (11:39)
== END 2024-01-25 12:00 | disposition home or self-care (01) ==
LOC: FER 10:22
DX: N30.00 Acute cystitis without hematuria (principal); R30.0 Dysuria; R39.15 Urgency of urination; R35.0 Frequency of micturition
CPT/HCPCS: 81003; 81015; 87086; 99284-25

== ENCOUNTER 2024-05-07 15:41 | Inpatient (IN) | payer OTHER, BC ==
[2024-05-07] MEDS ORDERED: ACETAMINOPHEN INJECTION 100 ML ONE (16:30)
[2024-05-07] MEDS: ACETAMINOPHEN 1000 MG/100 ML BAG IVPB ONE (16:52)
[2024-05-07] MEDS: SODIUM CHLORIDE 1,000 ML IV STA (16:52)
[2024-05-07 17:13] LABS: HEMATOCRIT 45.4 % (32.4-45.2); MCH 32.1 pg (25.7-33.7); MCHC 33.1 g/dl (32.0-36.0); MEAN CELL VOLUME 96.8 fl (80-96); MEAN PLT VOLUME 9.9 fl (7.5-11.1); PLATELET COUNT 155.7 10^3/uL (134-434); RBC 4.69 10^6/uL (3.60-5.2); RDW 13.4 % (11.6-15.6)
[2024-05-07 17:14] LABS: PLATELET ESTIMATE ADEQUATE
[2024-05-07 17:19] LABS: ALBUMIN 4.1 g/dl (3.4-5.0); BILIRUBIN,TOTAL 0.6 mg/dl (0.2-1); CALCIUM 9.4 mg/dl (8.5-10.1); CREATININE 1.4 mg/dl (0.6-1.3); POTASSIUM 3.1 mmol/L (3.5-5.1); TOT PROT 6.5 g/dl (6.4-8.2)
[2024-05-07] MEDS ORDERED: guaiFENesin 600 MG TABLET.ER (FP) PO ONE (17:44)
[2024-05-07] MEDS ORDERED: POTASSIUM CHLORIDE TABS 20 MEQ TABLET.ER (FP) PO ONE (17:44)
[2024-05-07] MEDS: POTASSIUM CHLORIDE TABS 20 MEQ TABLET.ER (FP) PO ONE (17:50)
[2024-05-07] MEDS: guaiFENesin 600 MG TABLET.ER (FP) PO ONE (17:50)
[2024-05-07] MEDS ORDERED: cefTRIAXone SODIUM 1 GM VIAL ONE (19:07)
[2024-05-07] MEDS: CEFTRIAXONE 1,000 MG in DEXTROSE 5%-WATER - 50 ML IVPB ONE (19:12)
[2024-05-07] MEDS ORDERED: AZITHROMYCIN 500 MG VIAL IVPB ONE (19:20)
[2024-05-07] MEDS: AZITHROMYCIN IVPB 500 MG in DEXTROSE 5%-WATER - 250 ML IVPB ONE (19:35)
[2024-05-07] MEDS ORDERED: POTASSIUM CHLORIDE ORAL LIQUID 20 MEQ/15 ML PO ONE (20:29)
[2024-05-07 20:56] LABS: HIV INTERPRETATION NEGATIVE (NEGATIVE)
[2024-05-07] MEDS: GABAPENTIN 400 MG CAPSULE PO SCH (21:57)
[2024-05-07] MEDS: OSELTAMIVIR PHOSPHATE 30 MG CAPSULE PO ONE (21:57)
[2024-05-07] MEDS: ROSUVASTATIN CA 20 MG TABLET PO SCH (21:57)
[2024-05-07] MEDS: APIXABAN 5 MG TABLET PO SCH (21:57)
[2024-05-07 22:47] VITALS: BMI 26.2
[2024-05-07] MEDS: MELATONIN 5 MG TABLETS PO PRN (23:13)
[2024-05-08] MEDS: ACETAMINOPHEN 325 MG TABLET (FP) PO PRN (00:28)
[2024-05-08] MEDS ORDERED: SODIUM CHLORIDE 1,000 ML IV SCH (05:15)
[2024-05-08] MEDS: OSELTAMIVIR PHOSPHATE 30 MG CAPSULE PO SCH (09:36)
[2024-05-08] MEDS: CEFTRIAXONE 1 G/50 ML PREMIX 50 ML IVPB SCH (09:36)
[2024-05-08] MEDS: AZITHROMYCIN IVPB 500 MG/250 ML BAG IVPB SCH (09:36)
[2024-05-08 10:36] LABS: BASO % 0.4 % (0-2.0); EOS % 1.7 % (0-4.5); HEMATOCRIT 42.2 % (32.4-45.2); HEMOGLOBIN 14.4 GM/dL (10.7-15.3); LYMPH % 20.9 % (8-40); MCH 32.7 pg (25.7-33.7); MCHC 34.1 g/dl (32.0-36.0); MEAN CELL VOLUME 95.9 fl (80-96); MEAN PLT VOLUME 9.3 fl (7.5-11.1); MONO % 6.9 % (3.8-10.2); NEUT % 70.1 % (42.8-82.8); PLATELET COUNT 136 10^3/uL (134-434); RDW 13.5 % (11.6-15.6); WHITE BLOOD COUNT 5.7 K/mm3 (4.0-10.0)
[2024-05-08 11:12] LABS: CALCIUM 8.6 mg/dl (8.5-10.1); CREATININE 1.4 mg/dl (0.6-1.3); POTASSIUM 3.1 mmol/L (3.5-5.1)
[2024-05-09 06:37] VITALS: RESP 18
[2024-05-09 08:42] LABS: ALBUMIN 3.7 g/dl (3.4-5.0); ALK PHOS 50 U/L (45-117); ANION GAP 11 mmol/L (4-13); BILIRUBIN,TOTAL 0.5 mg/dl (0.2-1); CALCIUM 8.8 mg/dl (8.5-10.1); CHLORIDE 102 mmol/L (98-107); CO2 28 mmol/L (21-32); CREATININE 0.9 mg/dl (0.6-1.3); GLUCOSE,RANDOM 88 mg/dl (74-106); POTASSIUM 2.9 mmol/L (3.5-5.1); SGOT/AST 22 U/L (15-37); SGPT/ALT 21 U/L (7-52); SODIUM 141 mmol/L (136-145); TOT PROT 5.6 g/dl (6.4-8.2)
[2024-05-09 10:15] LABS: BASO % 0.3 % (0-2.0); EOS % 2.7 % (0-4.5); HEMATOCRIT 41.7 % (32.4-45.2); HEMOGLOBIN 14.2 GM/dL (10.7-15.3); LYMPH % 29.8 % (8-40); MCH 32.7 pg (25.7-33.7); MEAN CELL VOLUME 96.1 fl (80-96); MEAN PLT VOLUME 9.3 fl (7.5-11.1); MONO % 9.3 % (3.8-10.2); NEUT % 57.9 % (42.8-82.8); PLATELET COUNT 136 10^3/uL (134-434); RBC 4.34 M/mm3 (3.60-5.2); RDW 13.4 % (11.6-15.6); WHITE BLOOD COUNT 4.3 K/mm3 (4.0-10.0)
[2024-05-09] MEDS: POTASSIUM CHLORIDE ORAL LIQUID 20 MEQ/15 ML PO ONE (16:28)
[2024-05-09] MEDS: KCL 10 MEQ IVPB 10 MEQ/100 ML INFUS.BAG IVPB SCH (16:28)
[2024-05-09] MEDS: MAGNESIUM OXIDE 400 MG TABLET (FP) PO ONE (16:28)
[2024-05-09] MEDS: LEVALBUTEROL HCL 0.31 MG/3 ML VIAL.NEB IH SCH (16:29)
[2024-05-09] MEDS: methylPREDNISolone NA SUCC 40 MG/1 ML VIAL IVPUSH SCH (16:49)
[2024-05-09] MEDS: guaiFENesin 200 MG/10 ML 10 ML UNIT-DOSE CUPS PO PRN (16:49)
[2024-05-10 08:43] LABS: BILIRUBIN,TOTAL 0.4 mg/dl (0.2-1); CALCIUM 9.2 mg/dl (8.5-10.1); CREATININE 0.8 mg/dl (0.6-1.3); MAGNESIUM 1.2 mg/dL (1.8-2.4); POTASSIUM 3.8 mmol/L (3.5-5.1); TOT PROT 6.1 g/dl (6.4-8.2)
[2024-05-10 14:22] VITALS: BP 127/81; PULSE 94; TEMP 98.1
[2024-05-10] MEDS ORDERED: predniSONE 20 MG TABLET (UD) PO SCH (22:00)
[2024-05-10] MEDS ORDERED: CEFUROXIME AXETIL 500 MG TABLET PO SCH (22:00)
== END 2024-05-10 17:16 | disposition home or self-care (01) | DRG 190 ==
LOC: FER 15:41 → FM/S 19:03
PROVIDERS: ADMIT Student in an Organized Health Care Education/Training Program; ATTEND Family Medicine
DX: J44.0 Chronic obstructive pulmonary disease with (acute) lower respiratory infection (principal); J18.9 Pneumonia, unspecified organism; J10.00 Influenza due to other identified influenza virus with unspecified type of pneumonia; N17.9 Acute kidney failure, unspecified; J44.1 Chronic obstructive pulmonary disease with (acute) exacerbation; E78.5 Hyperlipidemia, unspecified; I10 Essential (primary) hypertension; E87.6 Hypokalemia; E86.0 Dehydration; I48.91 Unspecified atrial fibrillation; I25.10 Atherosclerotic heart disease of native coronary artery without angina pectoris
CPT/HCPCS: 0241U-QW; 36415; 71045-TC-FY; 71250-TC; 80048; 80053; 81003; 81015; 83735; 85025; 85027; 86803; 87086; 87389; 87899; 93005; 99285-25; J0131

== ENCOUNTER 2024-12-15 15:57 | Emergency (ER) | payer OTHER, BC ==
[2024-12-15 17:01] VITALS: RESP 17; TEMP 98; BMI 27.4
[2024-12-15 17:11] LABS: ABSOLUTE IMMATURE GRANULOCYTES 0.04 x10^3/uL (0.0-0.031); BASOPHILS # 0.01 x10^3/uL (0.01-0.08); EOSINOPHIL % 1.5 % (0.7-5.8); EOSINOPHILS # 0.09 x10^3/uL (0.04-0.36); MCHC 31.6 g/dl (32.2-35.5); MEAN CELL VOLUME 101.1 fl (79.4-94.8); MEAN PLT VOLUME 10.7 fl (9.4-12.3); MONOCYTE # 0.72 x10^3/uL (0.24-0.86); MONOCYTE % 11.8 % (4.7-12.5); RDW 13.2 % (12.4-16.6)
[2024-12-15 17:32] LABS: GLUCOSE,RANDOM 113.0 mg/dL (74-106); TOT PROT 6.4 g/dl (6.4-8.2)
[2024-12-15 17:33] LABS: CO2 24.0 mmol/L (21-32)
[2024-12-15 17:34] LABS: ALK PHOS 93.0 U/L (40-150)
[2024-12-15 17:38] LABS: CREATININE 1.8 mg/dL (0.55-1.3); SGOT/AST 25.0 U/L (5-34); SGPT/ALT 19.0 U/L (0-55)
[2024-12-15] MEDS: SODIUM CHLORIDE 0.9% 500 ML INFUS.BAG IV ONE (18:35)
[2024-12-15 20:01] VITALS: BP 158/71; PULSE 72
== END 2024-12-15 20:07 | disposition home or self-care (01) ==
LOC: JER 15:57
DX: S02.2XXA Fracture of nasal bones, initial encounter for closed fracture (principal); R42 Dizziness and giddiness; M54.2 Cervicalgia; R51.9 Headache, unspecified; W01.198A Fall on same level from slipping, tripping and stumbling with subsequent striking against other object, initial encounter
CPT/HCPCS: 36415; 70450-TC; 70486-TC; 71045-TC-FY; 72125-TC; 80053; 84484; 85025; 93005; 93010; 99285-25